=== PATIENT | female | born 1940 ===

== ENCOUNTER 2023-08-15 14:05 | Inpatient (IN) | payer MEDICARE, SELFPAY ==
--- NOTE | ~2023-08-15 | CT_ITS ---
EXAMINATION: CT ABDOMEN AND PELVIS WITH CONTRAST CLINICAL INFORMATION: Right upper quadrant COMPARISON: None available. TECHNIQUE: Multidetector volumetric images were obtained from the superior aspect of the liver through the pubic symphysis following administration 85 mL of Omnipaque 350 intravenous contrast. Sagittal and coronal reformatted images were obtained on the technologist's workstation. Oral contrast: No This CT examination was performed using dose optimization techniques as appropriate, variously including the following: *Automated exposure control *Adjustment of mA and/or kV according to patient size (this includes techniques or standardized protocols for targeted exams where dose is matched to indication/reason for exam; i.e. extremities or head) *Use of iterative reconstruction technique DLP: 485 mGy-cm FINDINGS: LUNG BASES: Bibasilar atelectasis is present. Heart size normal. No pleural effusions or consolidations. There is peribronchial thickening. LIVER, GALLBLADDER, AND BILIARY TREE: The liver is normal in size, shape, and attenuation. No focal hepatic lesion or biliary ductal dilatation is present. The gallbladder is very distended and contains multiple calcified stones. Pericholecystic inflammatory changes are seen consistent with acute cholecystitis no pericholecystic abscess is seen. No air is seen in the biliary tree. PANCREAS: Unremarkable. SPLEEN: Unremarkable. ADRENAL GLANDS: Unremarkable. KIDNEYS AND URETERS: The kidneys are normal in size, shape, and attenuation. No hydronephrosis, hydroureter, or calculi seen. No perinephric stranding. No solid renal masses are seen. BLADDER: Unremarkable. GASTROINTESTINAL TRACT: Some of the inflammatory change from the gallbladder extends to the right colon colonic diverticula are seen most prominent in the sigmoid without evidence of diverticulitis. The small and large bowel are otherwise unremarkable. The appendix is is not identified but there is no evidence of appendicitis. ABDOMINAL WALL: No significant hernia is appreciated. LYMPH NODES: No retroperitoneal lymphadenopathy VASCULAR: Calcific atherosclerotic changes are present in the aorta and iliac vessels. There is no evidence of an abdominal aortic aneurysm. PELVIC VISCERA: An anteverted uterus is present. The endometrium is abnormal with increased enhancement and cystic changes. An abnormal adnexal mass is not seen. No free fluid is detected OSSEOUS STRUCTURES: Degenerative changes are present throughout the spine with mild biconvex thoracolumbar scoliosis. No bony destructive lesions are seen. CT/CT abdomen pelvis w IV con IMPRESSION: 1. Cholelithiasis with acute cholecystitis. 2. Abnormal endometrium. Elective ultrasound is recommended for further evaluation. 3. Colonic diverticulosis without diverticulitis. 4. Other incidental findings as described above. Fleischner guidelines were followed.
[2023-08-15 14:11] VITALS: BP 109/49; PULSE 101; RESP 16; TEMP 36.2; O2SAT 94; BMI 24.1
--- NOTE | 2023-08-15 14:25 | ED.ABDPAIN ---
HPI - Abdominal Pain General Chief Complaint: Abdominal Pain Stated Complaint: Pain when breathing/Abd pain Time Seen by Provider: 08/15/23 19:50 Source: patient and family Mode of arrival: ambulatory Limitations: no limitations History of Present Illness HPI narrative: Patient comes to the emergency room complaining of right upper quadrant/right flank pain for 4 days. Patient has been having multiple episodes of vomiting and diarrhea. No fever chills. Patient states that the pain is constant and nonradiating. Related Data Allergies Allergy/AdvReac Type Severity Reaction Status Date / Time No Known Allergies Allergy Verified 08/15/23 14:11 Review of Systems Review of Systems Constitutional : No Weight loss, No Fever, No Chills, No Night Sweats, No Fatigue, No Malaise ENT/Mouth : No Hearing loss, No Ear Pain, No Nasal Congestion, No Sinus Pain, No Hoarseness, No sore throat, No Rhinorrhea, No Swallowing Difficulty Eyes: No Eye Pain, No Swelling, No Redness, No Foreign Body, No Discharge, No Vision Changes Cardiovascular : No Chest Pain, No SOB, No Dyspnea on Exertion, No Orthopnea, No Edema, No Palpitations Respiratory : No Cough, No Sputum, No Wheezing, No Smoke Exposure, No Dyspnea Gastrointestinal : Opening of nausea and vomiting, complaining of diarrhea, denies constipation, complaining of right upper quadrant/right flank pain continuously, decreased appetite Genitourinary : no irregular bleeding, No Dysuria, No Urinary Frequency, No Hematuria, No Urinary Incontinence, No Urgency, No Flank Pain, No Urinary Flow Changes, No Hesitancy Musculoskeletal : No joint pain, No Myalgias, No Joint Swelling Skin : No Skin Lesions, No rash Neuro : No Weakness, No Numbness, No Paresthesias, No Loss of Consciousness, No Dizziness, No Headache Psych : No Anxiety/Panic, No Depression, No SI/HI/AH/VH, No Social Issues, Heme/Lymph: No Bruising, No Bleeding,No Lymphadenopathy Endocrine : No Polyuria, No Polydipsia, No Temperature Intolerance PMFSH Past Medical History Onset Date is defined in the Problem List Problems that require an onset date and time if occurred within 24 hrs of arrival to the ED Aortic Dissection and Rupture; Neurologic impairment; Cardiopulmonary Arrest; Endotracheal Intubation; Insertion or Replacement of Mechanical Circulatory Assist Device Medical History (Updated 01/02/24 @ 21:33 by Haydee Eason MD) Hypertension Type 2 diabetes mellitus Surgical History (Updated 08/15/23 @ 20:10 by Haydee Eason MD) H/O: section Physical Exam ED Vital Signs: Vital Signs - 24 hr 08/15/23 14:11 08/15/23 21:04 Temperature 97.2 F 98.8 F Pulse Rate 101 H 83 Respiratory Rate 16 18 Blood Pressure 109/49 L 107/49 L Pulse Oximetry 94 94 Oxygen Delivery Method Room Air Room Air BMI result Body Mass Index 24.1 Const Other: Appearance: Alert. Oriented X3. Looks uncomfortable, seems weak Eyes: Pupils equal, round and reactive to light. ENT: Pharynx normal. Neck: Normal inspection. Neck supple. No lymph nodes noted. No crepitus CVS: Normal heart rate and rhythm. Pulses normal. Normal S1 and S2 Respiratory: No respiratory distress. Breath sounds normal. No Wheezing. No rales Abdomen: Soft, mild discomfort to palpation in epigastric area, comes to be more tender or in the lower rib area was/right following, negative Sears sign Skin: Skin warm and dry. Normal skin color. Normal skin turgor. Extremities: No lower extremity edema. No Lacerations. No Rash Neuro: Oriented X 3. No motor deficit. No sensory deficit. Moving all extremities. No slurred speech. CN 2 through 12 grossly intact Psych: calm, cooperative, normal affect Course Course Course Narrative: This is an RME: Additional HPI, ROS, PE not included below will be deferred to primary provider. This 83-year-old female, w history of diabetes, presenting to the emergency department with complaints of right-sided abdominal pain. She is also having liquid diarrhea. No bloody or black stool. Also endorsing weakness. No chest pain or shortness of breath. Plan: labs, UA Medical Decision Making Medical Decision Making MDM Narrative: -my interpretation of labs: White blood cell count 26.5. Chemistry shows mild hyponatremia, total and direct bilirubin slightly elevated, alk-phos also slightly elevated. Lipase negative -patient receiving IV fluids, Zofran, morphine -patient's CT scan of the abdomen and pelvis are pending. -my interpretation of CT scan of the abdomen: The gallbladder is significantly distended with gallstones present. Findings consistent with acute cholecystitis -I discussed the patient labs and imaging with Dr. Britton from surgery, patient being admitted. Dr. Britton at bedside -also, a medicine consult has been requested for surgery risk assessment, is discussed with Dr. Winter Differential Diagnosis Differential Diagnoses: The differential diagnosis associated with the presentation includes (Acute cholecystitis, choledocholithiasis, pancreatitis) Admission/Observation Consideration of admission/observation: Escalation of care including admission/observation considered Consult Healthcare Provider Management of the patient was discussed with: Hospitalist and Accounting Support Specialist Lab Data MDM Lab Attestation statement: I reviewed the patient's lab results. 08/15/23 15:02 08/15/23 15:02 Labs: Lab Results 08/15/23 08/15/23 Range/Units 15:02 21:04 WBC 26.5 H (4.8-10.8) X10*3/uL RBC 5.17 (4.20-5.50) X10*6/uL Hgb 15.9 (12.0-16.0) g/dl Hct 46.7 (37.0-47.0) % MCV 90.3 (80.0-98.0) fL MCH 30.8 (27.0-33.0) pg MCHC 34.0 (31.0-35.0) g/dl RDW 13.4 (11.0-16.0) % Plt Count 168 (160-400) X10*3/uL MPV 11.4 (9.4-12.3) fL Immature Gran % (Auto) 0.7 H (0.0-0.4) % Neut % (Auto) 90.2 H (45-73) % Lymph % (Auto) 4.3 L (20-40) % [place] % (Auto) 4.6 (2-11) % Eos % (Auto) 0.0 (0-4) % Baso % (Auto) 0.2 (0-2) % Lymph # (Auto) 1.2 (1.2-4.9) X10*3/uL [place] # (Auto) 1.2 (0.1-1.2) X10*3/uL Eos # (Auto) 0.0 (0.0-0.4) X10*3/uL Baso # (Auto) 0.1 (0.0-0.2) X10*3/uL Abs Immat Gran (auto) 0.18 H (0.00-0.03) X10*3/uL Absolute Neuts (auto) 23.9 H (2.0-8.3) x10*3/uL Absolute Nucleated RBC 0.000 (0.0-0.012) X10*3/uL Nucleated RBC % (auto) 0.0 (0.0-0.2) /100WBC Smear Tech's Comments VERIFIED Sodium 132 L (135-145) mmol/L Potassium 3.3 (3.3-5.1) mmol/L Chloride 98 (96-108) mmol/L Carbon Dioxide 23 (22-29) mmol/L Anion Gap 14 (12-20) BUN 38 H (9-16) mg/dL Creatinine 1.20 (0.5-1.4) mg/dL Estim Creat Clear Calc 26.9 Estimated GFR 43 Random Glucose 161 H (60-115) mg/dL Lactic Acid 1.0 (0.5-2.0) mmol/L Calcium 9.4 (8.4-10.2) mg/dL Total Bilirubin 1.5 H (0.0-1.0) mg/dL Direct Bilirubin 0.7 H (0.0-0.5) mg/dL AST 18 (5-31) U/L ALT 11 (0-31) U/L Alkaline Phosphatase 118 H (39-117) U/L Total Protein 8.1 H (6.5-8.0) g/dL Albumin 3.8 (3.5-5.0) g/dL Lipase 15 (8-78) U/L COVID-19 (ESTELLE) Negative (Negative) COVID-19 Clin Com See Note Influenza Type A (RUBÉN) Negative (Negative) Influenza Type B (RUBÉN) Negative (Negative) Influenza A & B Note See Note Independent Interpretation I performed an independent interpretation of an: CT Scan Radiology Impression Discussion of test interpretation with radiology: I have reviewed the radiologist's reading. Radiologist Impression: FINDINGS: LUNG BASES: Bibasilar atelectasis is present. Heart size normal. No pleural effusions or consolidations. There is peribronchial thickening. LIVER, GALLBLADDER, AND BILIARY TREE: The liver is normal in size, shape, and attenuation. No focal hepatic lesion or biliary ductal dilatation is present. The gallbladder is very distended and contains multiple calcified stones. Pericholecystic inflammatory changes are seen consistent with acute cholecystitis no pericholecystic abscess is seen. No air is seen in the biliary tree. PANCREAS: Unremarkable. SPLEEN: Unremarkable. ADRENAL GLANDS: Unremarkable. KIDNEYS AND URETERS: The kidneys are normal in size, shape, and attenuation. No hydronephrosis, hydroureter, or calculi seen. No perinephric stranding. No solid renal masses are seen. BLADDER: Unremarkable. GASTROINTESTINAL TRACT: Some of the inflammatory change from the gallbladder extends to the right colon colonic diverticula are seen most prominent in the sigmoid without evidence of diverticulitis. The small and large bowel are otherwise unremarkable. The appendix is is not identified but there is no evidence of appendicitis. ABDOMINAL WALL: No significant hernia is appreciated. LYMPH NODES: No retroperitoneal lymphadenopathy VASCULAR: Calcific atherosclerotic changes are present in the aorta and iliac vessels. There is no evidence of an abdominal aortic aneurysm. PELVIC VISCERA: An anteverted uterus is present. The endometrium is abnormal with increased enhancement and cystic changes. An abnormal adnexal mass is not seen. No free fluid is detected OSSEOUS STRUCTURES: Degenerative changes are present throughout the spine with mild biconvex thoracolumbar scoliosis. No bony destructive lesions are seen. CT/CT abdomen pelvis w IV con IMPRESSION: 1. Cholelithiasis with acute cholecystitis. 2. Abnormal endometrium. Elective ultrasound is recommended for further evaluation. 3. Colonic diverticulosis without diverticulitis. 4. Other incidental findings as described above. Independent Historian Clinical information obtained from an independent historian. History obtained from or confirmed by: Other (Patient's daughter and granddaughter) Medications Administered Discontinued Medications Generic Name Dose Route Start Last Admin Trade Name Freq PRN Reason Stop Dose Admin Sodium Chloride 1,000 mls @ 999 mls/hr 08/15/23 19:59 08/15/23 20:23 Ns IVCONT 08/15/23 20:59 999 mls/hr .Q1H1M ONE Administration Piperacillin Sod/Tazobactam 50 mls @ 100 mls/hr 08/15/23 20:35 08/15/23 21:12 Sod 3.375 gm/ Sodium Chloride IV 08/15/23 21:04 100 mls/hr ONCE ONE Administration Iohexol 100 ml 08/15/23 20:22 08/15/23 20:22 Iohexol 350 Mg/Ml 100 Ml Infus..Btl IV 08/15/23 20:23 85 ml ONCE ONE Administration Morphine Sulfate 2 mg 08/15/23 19:59 08/15/23 20:23 Morphine Sulfate 2 Mg/Ml Cartridge IVPUSH 08/15/23 20:00 2 mg ONCE ONE Administration Protocol Ondansetron HCl 4 mg 08/15/23 19:59 08/15/23 20:23 Ondansetron Hcl 4 Mg/2 Ml Vial IVPUSH 08/15/23 20:00 4 mg ONCE ONE Administration Critical Care Time Critical Care Time Critical Care Time: Yes Total Critical Care Time: 75 Attestation: I have personally provided critical care time. Time includes review of lab data, radiology results, discussion with consultants, and monitoring for potential decompensation. Intervention performed as documented. Discharge Plan Discharge Clinical Impression: Acute cholecystitis Patient Disposition: Admitted As Inpatient
[2023-08-15 15:12] LABS: Basophils Absolute Auto 0.1 X10*3/uL (0.0-0.2); Basophils Percent Auto 0.2 % (0-2); Hematocrit 46.7 % (37.0-47.0); Hemoglobin 15.9 g/dl (12.0-16.0); Imm Gran Abs Auto 0.18 X10*3/uL (0.00-0.03); Imm Gran Pct Auto 0.7 % (0.0-0.4); Lymphocytes Absolute Auto 1.2 X10*3/uL (1.2-4.9); Lymphocytes Percent Auto 4.3 % (20-40); MANUAL DIFF FLAG SCAN; Mean Corpuscular Hemoglobin 30.8 pg (27.0-33.0); Mean Corpuscular Volume 90.3 fL (80.0-98.0); Mean Platelet Volume 11.4 fL (9.4-12.3); Monocytes Absolute Auto 1.2 X10*3/uL (0.1-1.2); Monocytes Percent Auto 4.6 % (2-11); Neutrophils Absolute Auto 23.9 x10*3/uL (2.0-8.3); Neutrophils Percent Auto 90.2 % (45-73); Platelet Count 168 X10*3/uL (160-400); Red Blood Count 5.17 X10*6/uL (4.20-5.50); Red Cell Distribution Width 13.4 % (11.0-16.0); SCAN SMEAR FLAG 1; White Blood Count 26.5 X10*3/uL (4.8-10.8)
[2023-08-15 15:27] LABS: Alanine Aminotransferase 11 U/L (0-31); Albumin Level 3.8 g/dL (3.5-5.0); Alkaline Phosphatase 118 U/L (39-117); Anion Gap 14 (12-20); Aspartate Amino Transferase 18 U/L (5-31); Bilirubin Direct 0.7 mg/dL (0.0-0.5); Bilirubin Total 1.5 mg/dL (0.0-1.0); Blood Urea Nitrogen 38 mg/dL (9-16); Calcium 9.4 mg/dL (8.4-10.2); Carbon Dioxide 23 mmol/L (22-29); Chloride 98 mmol/L (96-108); Creatinine Clr Calc Pharmacy 26.9; Estimated Glomerular Filt Rate 43; Glucose Random 161 mg/dL (60-115); Lipase 15 U/L (8-78); Potassium 3.3 mmol/L (3.3-5.1); Sodium 132 mmol/L (135-145); Total Protein 8.1 g/dL (6.5-8.0)
[2023-08-15 15:32] LABS: SLIDE REVIEW VERIFIED
[2023-08-15 15:35] LABS: COVID-19 Test Negative (Negative); IDNOW Serial# 08D9AD1C
[2023-08-15 15:38] LABS: IDNOW Serial# 9DB6401D; Influenza A Negative (Negative); Influenza B2 Negative (Negative)
[2023-08-15] MEDS: iohexoL 350 MG/ML 100 ML INFUS..BTL IV (20:22)
[2023-08-15] MEDS: 0.9 % Sodium Chloride 1,000 ML 999 ML IVCONT (20:23)
[2023-08-15] MEDS: ondansetron HCL 4 MG/2 ML VIAL IVPUSH (20:23)
[2023-08-15] MEDS: Morphine Sulfate 2 MG/ML CARTRIDGE IVPUSH (20:23)
[2023-08-15 21:04] VITALS: BP 107/49; PULSE 83; RESP 18; TEMP 37.1; O2SAT 94
[2023-08-15] MEDS: Piperacillin Sodium/Tazobactam 3.375 GM in 0.9 % Sodium Chloride 50 ML IV (21:12)
[2023-08-15 21:28] LABS: Appearance Urine Turbid; Glucose Urine UA 100 mg/dL (Negative); Leukocyte Esterase Urine Moderate (2+) (Negative); Nitrite Urine Positive (Negative); Specific Gravity - Urine >= 1.030 (1.005-1.025); UMIC TRIGGER UACC YES; Urine Blood Trace (Negative); Urine Ketones Trace mg/dL (Negative); Urine Protein 100 (2+) mg/dL (Neg-Trace)
[2023-08-15 21:37] LABS: Color Urine Dark Yellow
[2023-08-15 21:39] LABS: Bacteria Urine 4+ (None Seen); Granular Casts Urine Present; Hyaline Casts Urine >20 /LPF (0-2); Squamous Epithelial Cell Urine >20 /HPF (0-2); UACC Culture Trigger YES
--- NOTE | 2023-08-15 22:02 | P.HPGS_ITS ---
History of Present Illness History of Present Illness Date of Service: 08/15/23 Chief complaint: Pain when breathing/Abd pain Narrative: Tabitha Clifton is a 83 year old female originally from [place] who comes in with her family today after having 4 days worth of not being able to eat and drink having nausea dry heaving. She has been able to take down just a little bit of some liquids and some light food. She lives in [place] but comes up here for the vacation with her family members visiting her daughter who lives in [place]. She speaks Polish understands little bit of anguish. She has had problems with her stomach and digestion before. It does not seem as though she knew that she had gallstones however. She has no sick contacts. Here in the emergency room her white count is elevated 26,000 her LFTs are little elevated and a CT scan shows a remarkably distended and thickened gallbladder with multiple stones consistent with cholecystitis. She complains of pain in the right upper quadrant radiating to her right flank and back area very typical of biliary disease. Disease she has had a and a hernia repair in her lower abdomen. Generally she is really quite healthy walks around moves around very well and is in overall good shape for 83-year-old Review of Systems Review of Systems: Yes all other systems are reviewed and are negative PMF Past Medical History Medical History (Updated 08/15/23 @ 21:33 by Haydee Eason MD) Hypertension Type 2 diabetes mellitus Surgical History Surgical History (Updated 08/15/23 @ 20:10 by Haydee Eason MD) H/O: section Social History Social History Advance Directives: No Advance Directives Information Provided: Yes Meds Allergies Allergy/AdvReac Type Severity Reaction Status Date / Time No Known Allergies Allergy Verified 08/15/23 14:11 Active Medications: Current Medications Acetaminophen (Acetaminophen 325 Mg Tablet) 650 mg PO Q6H PRN PRN Reason: Pain, Mild (Pain Scale 1-3) Famotidine (Famotidine 20 Mg Tablet) 20 mg PO BID DANIEL Heparin Sodium (Porcine) (Heparin Sodium,Porcine 5,000 Unit/Ml Vial) 5,000 unit SUBCUT BID DANIEL Sodium Chloride (Ns) 1,000 mls @ 84 mls/hr IVCONT .[id number] DANIEL Piperacillin Sod/Tazobactam (Sod 3.375 gm/ Sodium Chloride) 50 mls @ 100 mls/hr IV RQ6H DANIEL Sodium Chloride (0.9 % Sodium Chloride Flush 3 Ml Syringe) 3 ml IVFLUSH QSHIFT DANIEL Home Medications Medication Instructions Recorded Confirmed Last Taken Type Probiotic 1 cap PO DAILY 08/15/23 08/15/23 Unknown History atorvastatin 10 mg tablet 10 mg PO BEDTIME 08/15/23 08/15/23 Unknown History levothyroxine 75 mcg tablet 75 mcg PO DAILY 08/15/23 08/15/23 Unknown History metformin 850 mg tablet 850 mg PO DAILY 08/15/23 08/15/23 Unknown History Physical Exam Vital Signs: Vital Signs: Last Vital Signs Temp 98.8 F 08/15/23 21:04 Pulse 83 08/15/23 21:04 Resp 18 08/15/23 21:04 BP 107/49 L 08/15/23 21:04 Pulse Ox 94 08/15/23 21:04 O2 Del Method Room Air 08/15/23 21:04 BMI result Body Mass Index 24.1 Const: General: cooperative, healthy appearing, comfortable and no acute distress Nutritional Appearance: underweight Orientation/consciousness: oriented to person, oriented to place, oriented to time and patient oriented x3 Limitations: no limitations HEENT: Head: Yes normal to inspection Eyes: Other: Nonicteric Resp: Effort & Inspection: normal respiratory effort and able to speak in complete sentences Auscultation: clear to auscultation bilaterally Cardio: Rate: regular rate Rhythm: regular rhythm GI: Other: Abdomen is soft nontender other than in the right upper quadrant where she has tenderness the radiate to her right flank back area mild guarding no rebound no peritoneal signs. Midline lower abdomen incision no hernias noted. No peritonitis Skin: Other: Nonicteric Neuro: General: oriented to person, oriented to place, oriented to time and patient oriented x3 Cranial nerves: Yes CN's II-XII intact bilaterally Extrem: General: Yes normal to inspection and Yes full ROM Results Results Labs: Short CBC 08/15/23 Range/Units 15:02 WBC 26.5 H (4.8-10.8) X10*3/uL Hgb 15.9 (12.0-16.0) g/dl Hct 46.7 (37.0-47.0) % Plt Count 168 (160-400) X10*3/uL BMP 08/15/23 15:02 Sodium 132 L Potassium 3.3 Chloride 98 Carbon Dioxide 23 BUN 38 H Creatinine 1.20 Calcium 9.4 Liver Function 08/15/23 Range/Units 15:02 Total Bilirubin 1.5 H (0.0-1.0) mg/dL Direct Bilirubin 0.7 H (0.0-0.5) mg/dL AST 18 (5-31) U/L ALT 11 (0-31) U/L Alkaline Phosphatase 118 H (39-117) U/L Albumin 3.8 (3.5-5.0) g/dL Urine 08/15/23 Range/Units 21:04 Urine Color Dark Yellow Urine Appearance Turbid Urine pH 5.0 (5.0-9.0) Ur Specific [place] >= 1.030 H (1.005-1.025) Urine Protein 100 (2+) H (Neg-Trace) mg/dL Urine Glucose (UA) 100 H (Negative) mg/dL Abdomen CT scan report/results: report reviewed and image reviewed CT scan - pelvis: report reviewed and image reviewed Assessment and Plan (1) Acute cholecystitis: Status: Acute Plan Patient is an 83-year-old female with acute cholecystitis by imaging tenderness in the right upper quadrant and white blood count being 26,000. Overall though she stable in says that she is feeling better with a little IV hydration over here. We will get the medical team to determine her surgical risk and then determine what options she has. She has extensive stone so I feel that if she is in good shape and we can get her more stabilized with some fluid rehydration antibiotics then she could be a good candidate for laparoscopic cholecystectomy. We will get a hospitalist consultation and if they determined that her risks are high then may consider just decompression with a cholecystostomy tube. I had a long discussion with the patient's brother who is a retired manufacturing mechanic who worked in [facility] but who now lives in [place] and he agrees that she is generally in good shape and health and that she would benefit from an operation the most. We will admit her IV hydration IV antibiotics recheck labs in the morning have the hospitalist team help with determining search it management of her blood and diabetes. The patient and the family understand and agree with this. Quality Stroke Does the patient have a stroke diagnosis?: No VTE Prior VTE?: No VTE Risk Level:: Surgical - moderate VTE Device Contraindication: N/A - Device Ordered VTE Drug Contraindication: N/A - Med Ordered Procedures Date of Service Date of Service: 08/15/23
--- NOTE | 2023-08-15 22:09 | PHA.MEDREC ---
Pharmacy Consult ? Medication Reconciliation Pharmacy has completed the medication reconciliation. Patient's family had list of medicaitons. Annika Singer, RossyD
[2023-08-15 22:16] VITALS: BP 120/54; PULSE 72; RESP 18; TEMP 37; O2SAT 95
[2023-08-15] MEDS: Heparin Sodium,Porcine 5,000 UNIT/ML VIAL 5000 UNIT SUBCUT (22:29)
[2023-08-15] MEDS: Famotidine 20 MG TABLET PO (22:29)
[2023-08-15] MEDS: 0.9 % Sodium Chloride 1,000 ML 84 ML IVCONT (22:30)
[2023-08-15 23:37] VITALS: BP 126/58; PULSE 78; RESP 20; TEMP 37.2; O2SAT 97
--- NOTE | 2023-08-15 23:42 | MHC.EDTECH ---
Patient 0000 vitals taken ,pt was reposition and boosted up in bed ,family member at bed side .
[2023-08-16] VITALS (13 sets, daily range): BP systolic 107–149; BP diastolic 45–67; PULSE 67–98; RESP 16–20; TEMP 36–37.4; O2SAT 92–98; BMI 24.1
--- NOTE | 2023-08-16 01:27 | PC.NURSE ---
pt had episode of diarrhea. pt states she has been having diarrhea for very long time . granddtr confirms that is has been more than several days at home.
[2023-08-16] MEDS: Piperacillin Sodium/Tazobactam 3.375 GM in 0.9 % Sodium Chloride 50 ML IV ×4 (04:16→20:16)
[2023-08-16] MEDS: Morphine Sulfate 4 MG/ML CARTRIDGE 3 MG IVPUSH (08:14)
--- NOTE | 2023-08-16 08:44 | P.PNGS_ITS ---
Subjective Subjective Date of Service: 08/16/23 <Mouna Harrington PA-C - Last Filed: 08/16/23 08:45> 08/16/23 <Umberto Rendon MD - Last Filed: 08/16/23 12:04> Interval history: Continues to c/o RUQ abd pain, somewhat relieved with analgesics. < Mouna Harrington PA-C - Last Filed: 08/16/23 08:45> Physical Exam 2 Vital Signs: Vital Signs: Last Vital Signs Temp 98.1 F 08/16/23 08:00 Pulse 98 08/16/23 08:00 Resp 19 08/16/23 08:14 BP 145/66 H 08/16/23 08:00 Pulse Ox 96 08/16/23 08:00 O2 Del Method Room Air 08/16/23 08:00 BMI result Body Mass Index 24.1 <MONROE Ramires Last Filed: 08/16/23 08:45> Const: General: comfortable, no acute distress and alert <MONROE Ramires Last Filed: 08/16/23 08:45> Orientation/consciousness: patient oriented x3 <MONROE Ramires Last Filed: 08/16/23 08:45> Resp: Effort & Inspection: normal respiratory effort <MONROE Ramires Last Filed: 08/16/23 08:45> GI: Inspection: No distended and Yes scar <MONROE Ramires Last Filed: 08/16/23 08:45> Palpation (GI): Soft to palpation, Tenderness to palpation present (GI) in the RUQ, no guarding and not rigid <MONROE Ramires Last Filed: 08/16/23 08:45> Skin: General skin exam: no rashes or lesions noted and no jaundice < MONROE Ramires Last Filed: 08/16/23 08:45> Neuro: General: patient oriented x3 <MONROE Ramires Last Filed: 08/16/23 08:45> Objective Data Active Medications Acetaminophen (Acetaminophen 325 Mg Tablet) 650 mg PO Q6H PRN PRN Reason: Pain, Mild (Pain Scale 1-3) Famotidine (Famotidine 20 Mg Tablet) 20 mg PO BID [facility] Last Admin: 08/16/23 07:51 Dose: Not Given Documented By: COTEMA Non-Admin Reason: NPO Heparin Sodium (Porcine) (Heparin Sodium,Porcine 5,000 Unit/Ml Vial) 5,000 unit SUBCUT BID [facility] Last Admin: 08/16/23 07:25 Dose: Not Given Documented By: COTEMA Non-Admin Reason: preop Sodium Chloride (Ns) 1,000 mls @ 84 mls/hr IVCONT .[id number] [facility] Last Admin: 08/15/23 22:30 Dose: 84 mls/hr Documented By: ELIZABETH Piperacillin Sod/Tazobactam (Sod 3.375 gm/ Sodium Chloride) 50 mls @ 100 mls/hr IV Q6H [facility] Last Admin: 08/16/23 08:19 Dose: 100 mls/hr Documented By: MAGEDEMA Morphine Sulfate (Morphine Sulfate 4 Mg/Ml Cartridge) 3 mg IVPUSH Q3H PRN; Protocol PRN Reason: Pain, Severe (Pain Scale 7-10) Last Admin: 08/16/23 08:14 Dose: 3 mg Documented By: MAGEDEMA Sodium Chloride (0.9 % Sodium Chloride Flush 3 Ml Syringe) 3 ml IVFLUSH QSHIFT [facility] Last Admin: 08/16/23 07:22 Dose: Not Given Documented By: SHERWIN Non-Admin Reason: IV Running <Mouna Harrington PA-C - Last Filed: 08/16/23 08:45> Labs CBC & Chem 7: 08/16/23 09:28 08/16/23 09:28 <Mouna Harrington PA-C - Last Filed: 08/16/23 08:45> Labs: Laboratory Results - last 24 hr 08/15/23 08/15/23 15:02 21:04 MCV 90.3 MCH 30.8 MCHC 34.0 RDW 13.4 Plt Count 168 MPV 11.4 Immature Gran % (Auto) 0.7 H Neut % (Auto) 90.2 H Lymph % (Auto) 4.3 L [place] % (Auto) 4.6 Eos % (Auto) 0.0 Baso % (Auto) 0.2 Lymph # (Auto) 1.2 [place] # (Auto) 1.2 Eos # (Auto) 0.0 Baso # (Auto) 0.1 Abs Immat Gran (auto) 0.18 H Absolute Neuts (auto) 23.9 H Absolute Nucleated RBC 0.000 Nucleated RBC % (auto) 0.0 Smear Tech's Comments VERIFIED Anion Gap 14 Estim Creat Clear Calc 26.9 Estimated GFR 43 Random Glucose 161 H Lactic Acid 1.0 Calcium 9.4 Total Bilirubin 1.5 H Direct Bilirubin 0.7 H AST 18 ALT 11 Alkaline Phosphatase 118 H Total Protein 8.1 H Albumin 3.8 Lipase 15 Urine Color Dark Yellow Urine Appearance Turbid Urine pH 5.0 Ur Specific [place] >= 1.030 H Urine Protein 100 (2+) H Urine Glucose (UA) 100 H Urine Ketones Trace Urine Blood Trace H Urine Nitrite Positive H Ur Leukocyte Esterase Moderate (2+) H Urine RBC 6-10 H Urine WBC 11-20 Ur Squamous Epith Cells >20 Urine Bacteria 4+ Hyaline Casts >20 Granular Casts Present COVID-19 (ESTELLE) Negative COVID-19 Clin Com See Note Influenza Type A (RUBÉN) Negative Influenza Type B (RUBÉN) Negative Influenza A & B Note See Note <Mouna Harrington PA-C - Last Filed: 08/16/23 08:45> Procedures Date of Service Date of Service: 08/16/23 <Mouna Harrington PA-C - Last Filed: 08/16/23 08:45> 08/16/23 <Umberto Rendon MD - Last Filed: 08/16/23 12:04> Progress Note: A&P Assessment and plan (1) Acute cholecystitis: Status: Acute <Mouna Harrington PA-C - Last Filed: 08/16/23 08:45> Assessment and Plan: 83 year old female admitted with acute cholecystitis, awaiting lap jeny today. Risks, benefits, alternatives of laparoscopic possible open cholecystectomy were reviewed with the patient including but not limited to bleeding, infection, numbness, pain, poor healing, injury to the liver, bowel or bile ducts, leak, retained stones and the patient wishes to proceed.? Arrangements will be made for this.?All questions were answered. <Mouna Harrington PA-C - Last Filed: 08/16/23 08:45> Time Spent With Patient Time: Total time managing care of this patient today ____ minutes. <Mouna Harrington PA-C - Last Filed: 08/16/23 08:45> Quality Stroke Does the patient have a stroke diagnosis?: No <Mouna Harrington PA-C - Last Filed: 08/16/23 08:45> VTE Prior VTE?: No <Mouna Harrington PA-C - Last Filed: 08/16/23 08:45> VTE Risk Level:: Surgical - moderate <Mouna Harrington PA-C - Last Filed: 08/16/23 08:45> VTE Device Contraindication: N/A - Device Ordered <Mouna Harrington PA-C - Last Filed: 08/16/23 08:45> VTE Drug Contraindication: N/A - Med Ordered <MONROE Ramires Last Filed: 08/16/23 08:45>
--- NOTE | 2023-08-16 08:53 | P.CONHOSP_ITS ---
History of Present Illness Data of Consult Service Date: 08/16/23 Requesting physician: Saskia Britton Primary Care Provider: Unknown Physician HPI Reason for consult: Pre-op evaluation Tabitha Clifton is 83 y/o Colombian-speaking woman (originally from [place]) with past medical history significant for hyperlipidemia, well-controlled type 2 diabetes on metformin and hypothyroidism who was admitted to the surgical service of tissue was found to have acute cholecystitis. She stated that last Monday she started to experience right upper quadrant pain associated with multiple events of nonbloody vomiting and chills. She also mentioned that over the last few months she has been experiencing number a watery nonbloody diarrhea and appetite. Pain does not relives with defecation. She denied fever at home. She recently traveled to [place]. She denied weight loss, headache, dizziness, chest pain, or shortness of breath. She denies any acute genitourinary symptoms. abdominal surgery history is remarkable for C-sections x1 an umbilical hernia repair. She denied a history of coronary artery disease/ myocardial infarction, congestive heart failure, stroke or renal disease. She denied topical smoking or alcohol abuse. On admission, She was found have stable vital signs and no fever reported. Blood workup is significant can leukocytosis, 26.5, ALT and AST are normal. ALK Phos elevated. Total bilirubin is slightly elevated at 1.5 (direct is elevated, 0.7). Lipase is normal. Urinalysis shows finding consistent with UTI. She has been receiving IV hydration and empiric IV antibiotic therapy with Zosyn. Abdomen and pelvis CT scan showed findings consistent with cholelithiasis and acute cholecystitis.She has been scheduled to have laparoscopic cholecystectomy today. Her pain is well-controlled this morning. *HPI addressed in [place] ([facility] Review of Systems 2 Review of Systems: All 12 systems were reviewed and normal except as noted in HPI. [facility] Medical History (Updated 08/16/23 @ 10:34 by Diana Gonzalez MD) Hyperlipidemia Hypothyroidism Hypertension Type 2 diabetes mellitus Functional capacity: independent ambulation Surgical History (Updated 08/16/23 @ 10:35 by Diana Gonzalez MD) H/O hernia repair H/O: section Social History Household Members: Family Housing: House Patient Tobacco Use Status: Never used Tobacco Second Hand Smoke Exposure: No Meds Allergies Allergy/AdvReac Type Severity Reaction Status Date / Time No Known Allergies Allergy Verified 08/15/23 14:11 Active Medications: Current Medications Acetaminophen (Acetaminophen 325 Mg Tablet) 650 mg PO Q6H PRN PRN Reason: Pain, Mild (Pain Scale 1-3) Famotidine (Famotidine 20 Mg Tablet) 20 mg PO BID [facility] Last Admin: 08/16/23 07:51 Dose: Not Given Heparin Sodium (Porcine) (Heparin Sodium,Porcine 5,000 Unit/Ml Vial) 5,000 unit SUBCUT BID [facility] Last Admin: 08/16/23 07:25 Dose: Not Given Sodium Chloride (Ns) 1,000 mls @ 84 mls/hr IVCONT .[id number] [facility] Last Admin: 08/16/23 08:51 Dose: Not Given Piperacillin Sod/Tazobactam (Sod 3.375 gm/ Sodium Chloride) 50 mls @ 100 mls/hr IV Q6H [facility] Last Infusion: 08/16/23 08:50 Dose: Infused Morphine Sulfate (Morphine Sulfate 4 Mg/Ml Cartridge) 3 mg IVPUSH Q3H PRN; Protocol PRN Reason: Pain, Severe (Pain Scale 7-10) Last Admin: 08/16/23 08:14 Dose: 3 mg Sodium Chloride (0.9 % Sodium Chloride Flush 3 Ml Syringe) 3 ml IVFLUSH QSHIFT [facility] Last Admin: 08/16/23 07:22 Dose: Not Given Home Medications Medication Instructions Recorded Confirmed Last Taken Type Probiotic 1 cap PO DAILY 08/15/23 08/15/23 Unknown History atorvastatin 10 mg tablet 10 mg PO BEDTIME 08/15/23 08/15/23 Unknown History levothyroxine 75 mcg tablet 75 mcg PO DAILY 08/15/23 08/15/23 Unknown History metformin 850 mg tablet 850 mg PO DAILY 08/15/23 08/15/23 Unknown History Physical Exam 2 Vital Signs and Narrative: Vital Signs: Last Vital Signs Temp 98.1 F 08/16/23 08:00 Pulse 98 08/16/23 08:00 Resp 19 08/16/23 08:14 BP 145/66 H 08/16/23 08:00 Pulse Ox 96 08/16/23 08:00 O2 Del Method Room Air 08/16/23 08:00 BMI result Body Mass Index 24.1 Const: Other: Constitutional - Awake and Alert, No apparent distress Eyes - PERRLA, EOMI Cardiovascular - S1S2, RRR, No edema Respiratory - Normal lung expansion, Normal respiratory effort, No respiratory distress, CTA bilaterally Gastrointestinal - soft, no distended, normal bowel sounds, RUQ tenderness without rebound or guarding. - No CVA tenderness Extremities - no calf tenderness bilaterally, no swelling Musculoskeletal - Normal inspection, normal ROM Skin - Warm/Dry Neurological - Alert & oriented x3. No focal deficit grossly noted. Psychological - Appropriate affect Results Labs 08/15/23 15:02 08/15/23 15:02 Labs: Laboratory Results - last 24 hr 08/15/23 08/15/23 15:02 21:04 MCV 90.3 MCH 30.8 MCHC 34.0 RDW 13.4 Plt Count 168 MPV 11.4 Immature Gran % (Auto) 0.7 H Neut % (Auto) 90.2 H Lymph % (Auto) 4.3 L [place] % (Auto) 4.6 Eos % (Auto) 0.0 Baso % (Auto) 0.2 Lymph # (Auto) 1.2 [place] # (Auto) 1.2 Eos # (Auto) 0.0 Baso # (Auto) 0.1 Abs Immat Gran (auto) 0.18 H Absolute Neuts (auto) 23.9 H Absolute Nucleated RBC 0.000 Nucleated RBC % (auto) 0.0 Smear Tech's Comments VERIFIED Anion Gap 14 Estim Creat Clear Calc 26.9 Estimated GFR 43 Random Glucose 161 H Lactic Acid 1.0 Calcium 9.4 Total Bilirubin 1.5 H Direct Bilirubin 0.7 H AST 18 ALT 11 Alkaline Phosphatase 118 H Total Protein 8.1 H Albumin 3.8 Lipase 15 Urine Color Dark Yellow Urine Appearance Turbid Urine pH 5.0 Ur Specific [place] >= 1.030 H Urine Protein 100 (2+) H Urine Glucose (UA) 100 H Urine Ketones Trace Urine Blood Trace H Urine Nitrite Positive H Ur Leukocyte Esterase Moderate (2+) H Urine RBC 6-10 H Urine WBC 11-20 Ur Squamous Epith Cells >20 Urine Bacteria 4+ Hyaline Casts >20 Granular Casts Present COVID-19 (ESTELLE) Negative COVID-19 Clin Com See Note Influenza Type A (RUBÉN) Negative Influenza Type B (RUBÉN) Negative Influenza A & B Note See Note Imaging Radiologist's Impressions: Impressions Abdomen/Pelvis CT 08/15/23 20:23 IMPRESSION: 1. Cholelithiasis with acute cholecystitis. 2. Abnormal endometrium. Elective ultrasound is recommended for further evaluation. 3. Colonic diverticulosis without diverticulitis. 4. Other incidental findings as described above. Fleischner guidelines were followed. Assessment and Plan (1) Hyperlipidemia: Qualifiers: Hyperlipidemia type: unspecified Qualified Code(s): E78.5 - Hyperlipidemia, unspecified Status: Acute (2) Hypothyroidism: Qualifiers: Hypothyroidism type: unspecified Qualified Code(s): E03.9 - Hypothyroidism, unspecified Status: Acute (3) Acute cholecystitis: Status: Acute Plan Tabitha Clifton is 83 y/o [place]ian-speaking woman admitted with: 1. Acute cholecystitis and acute cholecystitis. Continue NPO, IV hydration, IV antibiotic therapy and pain controlled. RCRI class II risk. Please check EKG if no significant changes please prooceed with planned procedure. Continue to monitor LFTs. 2. Leukocytosis likely secondary to above, doubt sepsis. Blood cultures obtained, will follow resutls. Continue to monitor WBC. Continue empiric IV antibiotic therapy with Zosyn and IV fluids. 3. Urinary tract infection. Continue IV antibiotic therapy with Zosyn. Urine culture was obtained, will follow results. 4. Hypothyroidism. Continue levothyroxine when able. 5. Hyperlipidemia. Continue atorvastatin when able. 6. Type 2 diabetes mellitus. Hold metformin. Blood glucose monitoring closely. Insulin sliding scale for now. 7. History of vitamin B12 deficiency. Receiving B12 injections as outpatient. 8. Chronic diarrhea. If persists after surgery, please consider stool studies and/or GI referral as an outpatient for further evaluation. 9. Abnormal endometrium. Pelvic US as an outpatient. VTE prophylaxis: Heparin.
[2023-08-16 10:08] LABS: Basophils Absolute Auto 0.1 X10*3/uL (0.0-0.2); Basophils Percent Auto 0.3 % (0-2); Eosinophils Absolute Auto 0.2 X10*3/uL (0.0-0.4); Eosinophils Percent Auto 0.9 % (0-4); Hematocrit 38.6 % (37.0-47.0); Hemoglobin 12.9 g/dl (12.0-16.0); Imm Gran Pct Auto 0.6 % (0.0-0.4); Lymphocytes Absolute Auto 0.3 X10*3/uL (1.2-4.9); Lymphocytes Percent Auto 1.8 % (20-40); MANUAL DIFF FLAG SCAN; Mean Corpuscular HGB Conc 33.4 g/dl (31.0-35.0); Mean Corpuscular Hemoglobin 30.6 pg (27.0-33.0); Mean Corpuscular Volume 91.5 fL (80.0-98.0); Mean Platelet Volume 11.8 fL (9.4-12.3); Monocytes Absolute Auto 0.5 X10*3/uL (0.1-1.2); Monocytes Percent Auto 2.9 % (2-11); Neutrophils Absolute Auto 15.1 x10*3/uL (2.0-8.3); Neutrophils Percent Auto 93.5 % (45-73); Platelet Count 145 X10*3/uL (160-400); Red Blood Count 4.22 X10*6/uL (4.20-5.50); Red Cell Distribution Width 13.2 % (11.0-16.0); SCAN SMEAR FLAG 1; White Blood Count 16.1 X10*3/uL (4.8-10.8)
[2023-08-16 10:24] LABS: Alanine Aminotransferase 19 U/L (0-31); Albumin Level 2.8 g/dL (3.5-5.0); Alkaline Phosphatase 118 U/L (39-117); Anion Gap 13 (12-20); Aspartate Amino Transferase 35 U/L (5-31); Bilirubin Total 1.3 mg/dL (0.0-1.0); Blood Urea Nitrogen 25 mg/dL (9-16); Calcium 8.1 mg/dL (8.4-10.2); Carbon Dioxide 21 mmol/L (22-29); Chloride 105 mmol/L (96-108); Creatinine Clr Calc Pharmacy 44.2; Estimated Glomerular Filt Rate > 60; Glucose Random 108 mg/dL (60-115); Potassium 2.8 mmol/L (3.3-5.1); Sodium 136 mmol/L (135-145); Total Protein 6.2 g/dL (6.5-8.0)
[2023-08-16 10:26] LABS: SLIDE REVIEW VERIFIED
--- NOTE | 2023-08-16 11:13 | MHC.CM.PN ---
Addendum entered by Amy George RN 08/16/23 13:31: CM attempted to meet with patient again. Still in OR. Original Note: CM attempted to meet with patient. However patient is off unit. Will attempt again today.
--- NOTE | 2023-08-16 11:58 | HO.ANESPROP2 ---
[facility] Active Problems Active Problems: All Active Problems (Updated 08/16/23 @ 10:34 by Diana Gonzalez MD) Hyperlipidemia (Acute) Hypothyroidism (Acute) Acute cholecystitis (Acute) Past Medical History Medical History Hyperlipidemia Hypothyroidism Hypertension Type 2 diabetes mellitus Functional capacity: independent ambulation Patient : No Family History Family history of problems with anesthesia: No Surgical History Surgical History (Updated 08/16/23 @ 10:35 by Diana Gonzalez MD) H/O hernia repair H/O: section History of Problems with Anesthesia: No Social History Social History Household Members: Family Housing: House Patient Tobacco Use Status: Never used Tobacco Second Hand Smoke Exposure: No Use of substances other than those prescribed or required for medical reasons: No Currently Displaying Signs/Symptoms of Drug Intoxication Withdrawal: No Have you been hit, kicked, punched, or otherwise hurt by someone within the past year? If so, by whom?: No Do you feel safe in your current relationship?: Yes Is there a partner from a previous relationship who is making you feel unsafe now?: No Are you made to feel afraid or neglected: No Are you DNR?: No Advance Directives: No Advance Directives Information Provided: Yes Advance Directives on File: No Do you have thoughts of harming others: None Do you have a plan to hurt others: No Plan Recently lost weight without trying: No Eating poorly because of decreased appetite: No Nutrition Risks: Acute nausea or vomiting x1 week Patient : No : No Poor oral hygiene: No Meds Allergies Allergy/AdvReac Type Severity Reaction Status Date / Time No Known Allergies Allergy Verified 08/15/23 14:11 Active Medications: Current Medications Acetaminophen (Acetaminophen 325 Mg Tablet) 650 mg PO Q6H PRN PRN Reason: Pain, Mild (Pain Scale 1-3) Atorvastatin Calcium (Atorvastatin Calcium 10 Mg Tablet) 10 mg PO BEDTIME DANIEL Famotidine (Famotidine 20 Mg Tablet) 20 mg PO BID [facility] Last Admin: 08/16/23 07:51 Dose: Not Given Fentanyl (Fentanyl Citrate/Pf 100 Mcg/2 Ml Vial) 25 mcg IVPUSH Q5M PRN; Protocol PRN Reason: Pain, Moderate(Pain Scale 4-6) Heparin Sodium (Porcine) (Heparin Sodium,Porcine 5,000 Unit/Ml Vial) 5,000 unit SUBCUT BID [facility] Last Admin: 08/16/23 07:25 Dose: Not Given Sodium Chloride (Ns) 1,000 mls @ 84 mls/hr IVCONT .[id number] [facility] Last Infusion: 08/16/23 10:18 Dose: Infused Piperacillin Sod/Tazobactam (Sod 3.375 gm/ Sodium Chloride) 50 mls @ 100 mls/hr IV Q6H [facility] Last Infusion: 08/16/23 08:50 Dose: Infused Levothyroxine Sodium (Levothyroxine Sodium 75 Mcg Tablet) 75 mcg PO DAILY@0600 [facility] Last Admin: 08/16/23 09:08 Dose: Not Given Morphine Sulfate (Morphine Sulfate 4 Mg/Ml Cartridge) 3 mg IVPUSH Q3H PRN; Protocol PRN Reason: Pain, Severe (Pain Scale 7-10) Last Admin: 08/16/23 08:14 Dose: 3 mg Ondansetron HCl (Ondansetron Hcl 4 Mg/2 Ml Vial) 4 mg IVPUSH ONCE PRN PRN Reason: Nausea and Vomiting Sodium Chloride (0.9 % Sodium Chloride Flush 3 Ml Syringe) 3 ml IVFLUSH QSHIFT [facility] Last Admin: 08/16/23 07:22 Dose: Not Given Home Medications Medication Instructions Recorded Confirmed Last Taken Type Probiotic 1 cap PO DAILY 08/15/23 08/15/23 Unknown History atorvastatin 10 mg tablet 10 mg PO BEDTIME 08/15/23 08/15/23 Unknown History levothyroxine 75 mcg tablet 75 mcg PO DAILY 08/15/23 08/15/23 Unknown History metformin 850 mg tablet 850 mg PO DAILY 08/15/23 08/15/23 Unknown History Exam Height,Weight and Vital Signs: Height 5 ft Weight 56 kg Last Vital Signs Temp 99.4 F 08/16/23 10:21 Pulse 91 08/16/23 10:21 Resp 16 08/16/23 10:21 BP 115/46 L 08/16/23 10:21 Pulse Ox 93 08/16/23 10:21 O2 Del Method Room Air 08/16/23 10:21 Pertinent Lab Results Pertinent Lab Results: Laboratory Tests 08/15/23 08/15/23 08/16/23 15:02 21:04 09:28 WBC 26.5 H 16.1 H RBC 5.17 4.22 Hgb 15.9 12.9 Hct 46.7 38.6 MCV 90.3 91.5 MCH 30.8 30.6 MCHC 34.0 33.4 RDW 13.4 13.2 Plt Count 168 145 L MPV 11.4 11.8 Immature Gran % (Auto) 0.7 H 0.6 H Neut % (Auto) 90.2 H 93.5 H Lymph % (Auto) 4.3 L 1.8 L [place] % (Auto) 4.6 2.9 Eos % (Auto) 0.0 0.9 Baso % (Auto) 0.2 0.3 Lymph # (Auto) 1.2 0.3 L [place] # (Auto) 1.2 0.5 Eos # (Auto) 0.0 0.2 Baso # (Auto) 0.1 0.1 Abs Immat Gran (auto) 0.18 H 0.10 H Absolute Neuts (auto) 23.9 H 15.1 H Absolute Nucleated RBC 0.000 0.000 Nucleated RBC % (auto) 0.0 0.0 Smear Tech's Comments VERIFIED VERIFIED Sodium 132 L 136 Potassium 3.3 2.8 L Chloride 98 105 Carbon Dioxide 23 21 L Anion Gap 14 13 BUN 38 H 25 H Creatinine 1.20 0.73 Estim Creat Clear Calc 26.9 44.2 Estimated GFR 43 > 60 Random Glucose 161 H 108 Lactic Acid 1.0 Calcium 9.4 8.1 L D Total Bilirubin 1.5 H 1.3 H Direct Bilirubin 0.7 H AST 18 35 H ALT 11 19 Alkaline Phosphatase 118 H 118 H Total Protein 8.1 H 6.2 L Albumin 3.8 2.8 L Lipase 15 Urine Color Dark Yellow Urine Appearance Turbid Urine pH 5.0 Ur Specific [place] >= 1.030 H Urine Protein 100 (2+) H Urine Glucose (UA) 100 H Urine Ketones Trace Urine Blood Trace H Urine Nitrite Positive H Ur Leukocyte Esterase Moderate (2+) H Urine RBC 6-10 H Urine WBC 11-20 Ur Squamous Epith Cells >20 Urine Bacteria 4+ Hyaline Casts >20 Granular Casts Present COVID-19 (ESTELLE) Negative COVID-19 Clin Com See Note Influenza Type A (RUBÉN) Negative Influenza Type B (RUBÉN) Negative Influenza A & B Note See Note Airway Mallampati Class: II TM Dist: >3cm Neck ROM: Full Partial: Lower Loose/Missing/Broken Teeth: Yes and Lower Heart: rrr Lungs: clear Assessment and Plan Final Anesthetic Review Family History of Problems with Anesthesia: No History of Problems with Anesthesia: No NPO: Yes ASA Class: III Final Preanesthetic Review: No Changes in Pt Med Stat, Meds/Allgs Chart Reviewed and Consent Obtained/Reviewed Patient Risk: Intermediate Procedure Risk: Low Anesthetic Plan Anesthetic Plan: GA Disposition: Standard PACU
--- NOTE | 2023-08-16 13:39 | W.PM.OPN ---
Operative Note Operative Note Date of Service: 08/16/23 Narrative: Preoperative diagnosis: Acute cholecystitis Postop diagnosis: Acute gangrenous phlegmonous cholecystitis Procedure [] laparoscopic cholecystectomy Surgeon: [] [facility] [employer] Director: [] Len Type of Anesthesia: [General Indication for surgery: [] A gangrenous phlegmonous pus filled gallbladder with omental and transverse colonic adhesions to it. Markedly intrahepatic gallbladder. Findings: [] Patient brought to the operating room, placed on table in supine position, after adequate level of general anesthesia was induced, the patient's abdomen was prepped and draped in usual sterile fashion. Using a supraumbilical curvilinear incision, Simpson technique was used to insufflate down the cavity to 15 mm of CO2. Upper midline and right subcostal ports were placed under direct laparoscopic view, and the patient placed in reverse Trendelenburg position, tilted to the left. Findings were as noted above. Omental and transverse colonic adhesions were swept off the phlegmonous tense , necrotic gallbladder. Because of its marked turgidity, the gallbladder was aspirated with an aspirating device to decompress it and was then grasped with laparoscopic graspers, and retracted superiorly and laterally. [place] was approached with the cystic artery and cystic duct were each identified, circumferentially skeletonized, traced directly into the gallbladder, and critical view obtained. Each was clipped proximally x2, distally x1, and transected. Gallbladder which was markedly intrahepatic and necrotic was cauterized from the gallbladder fossa using Bovie. Specimen was placed in an Endo-Catch bag, a retrieved through the umbilical port. Abdominal cavity was very copiously irrigated, and secured hemostasis. A Patrice-Naranjo drain was left in the gallbladder fossa and exited the right lateral port site. This was secured to the skin using 2-0 nylon. All ports were removed under direct laparoscopic view. Wounds were closed in following manner; umbilical wound is fascia reapproximated using interrupted 0 Vicryl sutures. Skin wounds were closed using subcuticular 4-0 Vicryl sutures followed by Steri-Strips and sterile dressings. Wounds were infiltrated 0.5% Marcaine at completion. Sponge, needle, instrument counts reported correct. Patient tolerated the procedure well and emerged anesthesia stable condition. EBL minimal
[2023-08-16] MEDS: Acetaminophen 325 MG TABLET 650 MG PO (14:39)
--- NOTE | 2023-08-16 15:46 | MHC.CM.PN ---
IMM delivered. Patient is from [place] where she lives alone and is functionally independent. No services or medical equipment. She is currently visiting with her daughter in [place]. PCP: Patient states she has a PCP in [place], but cannot remember the name HCP: No HCP on file, does not wish to complete at this time DP: Goal is return home w/ daughter, self care, daughter to transport. CM will continue to follow.
[2023-08-16] MEDS: 0.9 % Sodium Chloride Flush 3 ML SYRINGE IVFLUSH (15:50)
[2023-08-17] VITALS: BP 109/54; PULSE 65; RESP 16; TEMP 36; O2SAT 92
[2023-08-17] MEDS: Piperacillin Sodium/Tazobactam 3.375 GM in 0.9 % Sodium Chloride 50 ML IV ×2 (02:26→08:07)
[2023-08-17 03:18] VITALS: BP 112/54; PULSE 62; RESP 16; TEMP 36; O2SAT 93
[2023-08-17 06:27] LABS: MANUAL DIFF FLAG NO
[2023-08-17 06:34] LABS: Basophils Percent Auto 0.2 % (0-2); Hematocrit 34.8 % (37.0-47.0); Hemoglobin 11.7 g/dl (12.0-16.0); Imm Gran Abs Auto 0.04 X10*3/uL (0.00-0.03); Imm Gran Pct Auto 0.4 % (0.0-0.4); Lymphocytes Absolute Auto 0.6 X10*3/uL (1.2-4.9); Lymphocytes Percent Auto 5.8 % (20-40); Mean Corpuscular HGB Conc 33.6 g/dl (31.0-35.0); Mean Corpuscular Hemoglobin 30.5 pg (27.0-33.0); Mean Corpuscular Volume 90.6 fL (80.0-98.0); Mean Platelet Volume 11.4 fL (9.4-12.3); Monocytes Absolute Auto 0.7 X10*3/uL (0.1-1.2); Monocytes Percent Auto 6.2 % (2-11); Neutrophils Absolute Auto 9.3 x10*3/uL (2.0-8.3); Neutrophils Percent Auto 87.4 % (45-73); Platelet Count 132 X10*3/uL (160-400); Red Blood Count 3.84 X10*6/uL (4.20-5.50); Red Cell Distribution Width 13.2 % (11.0-16.0); White Blood Count 10.6 X10*3/uL (4.8-10.8)
[2023-08-17 07:27] VITALS: BP 123/59; PULSE 63; RESP 17; TEMP 36.1; O2SAT 92
--- NOTE | 2023-08-17 08:37 | HO.PM.IMPN ---
Subjective Subjective Date of Service: 08/17/23 Interval History: much better Physical Exam Vital Signs: Vital Signs: Last Vital Signs Temp 97.0 F 08/17/23 07:27 Pulse 63 08/17/23 07:27 Resp 17 08/17/23 07:27 BP 123/59 L 08/17/23 07:27 Pulse Ox 92 08/17/23 07:27 O2 Del Method Room Air 08/17/23 07:27 BMI result Body Mass Index 24.1 Const: General: comfortable, no acute distress and alert Orientation/consciousness: patient oriented x3 Resp: Effort & Inspection: normal respiratory effort GI: Inspection: No distended and Yes scar Palpation (GI): Soft to palpation, Tenderness to palpation present (GI) in the RUQ, no guarding and not rigid Skin: General skin exam: no rashes or lesions noted and no jaundice Neuro: General: patient oriented x3 Objective Data Active Medications Acetaminophen (Acetaminophen 325 Mg Tablet) 650 mg PO Q6H PRN PRN Reason: Pain, Mild (Pain Scale 1-3) Last Admin: 08/17/23 08:08 Dose: 650 mg Documented By: SHERWNI Atorvastatin Calcium (Atorvastatin Calcium 10 Mg Tablet) 10 mg PO BEDTIME [facility] Last Admin: 08/16/23 20:26 Dose: 10 mg Documented By: KIRILL Dextrose (Dextrose 50 % 25 Gm/50 Ml Syringe) 25 gm IVPUSH Q15M PRN; Protocol PRN Reason: per Hypoglycemia Standing Ord. Famotidine (Famotidine 20 Mg Tablet) 20 mg PO BID [facility] Last Admin: 08/17/23 08:08 Dose: 20 mg Documented By: SHERWIN Glucose (Glucose Gel 15 Gm Gel..Gram.) 15 gm PO Q15M PRN; Protocol PRN Reason: per Hypoglycemia Standing Ord. Heparin Sodium (Porcine) (Heparin Sodium,Porcine 5,000 Unit/Ml Vial) 5,000 unit SUBCUT BID [facility] Last Admin: 08/16/23 07:25 Dose: Not Given Documented By: SHERWIN Non-Admin Reason: preop Sodium Chloride (Ns) 1,000 mls @ 84 mls/hr IVCONT .[id number] [facility] Last Admin: 08/17/23 05:55 Dose: 84 mls/hr Documented By: KIRILL Piperacillin Sod/Tazobactam (Sod 3.375 gm/ Sodium Chloride) 50 mls @ 100 mls/hr IV Q6H [facility] Last Admin: 08/17/23 08:07 Dose: 100 mls/hr Documented By: SHERWIN Insulin Human Lispro (Insulin Lispro 100 Unit/Ml 3 Ml Vial) 0 unit SUBCUT QIDACHS [facility]; Protocol Last Admin: 08/17/23 07:51 Dose: Not Given Documented By: SHERWIN Non-Admin Reason: No Insulin Coverage Levothyroxine Sodium (Levothyroxine Sodium 75 Mcg Tablet) 75 mcg PO DAILY@0600 [facility] Last Admin: 08/17/23 05:52 Dose: 75 mcg Documented By: KIRILL Morphine Sulfate (Morphine Sulfate 4 Mg/Ml Cartridge) 3 mg IVPUSH Q3H PRN; Protocol PRN Reason: Pain, Severe (Pain Scale 7-10) Last Admin: 08/16/23 08:14 Dose: 3 mg Documented By: SHERWIN Oxycodone HCl (Oxycodone Hcl Immed Release 5 Mg Tablet) 5 mg PO Q4H PRN PRN Reason: Pain, Moderate(Pain Scale 4-6) Last Admin: 08/16/23 20:28 Dose: 5 mg Oxycodone HCl (Oxycodone Hcl Immed Release 5 Mg Tablet) 10 mg PO Q4H PRN PRN Reason: Pain, Severe (Pain Scale 7-10) Sodium Chloride (0.9 % Sodium Chloride Flush 3 Ml Syringe) 3 ml IVFLUSH QSHIFT [facility] Last Admin: 08/17/23 06:59 Dose: Not Given Documented By: SHERWIN Non-Admin Reason: IV Running Labs 08/17/23 05:49 08/16/23 09:28 Labs: Laboratory Results - last 24 hr 08/16/23 08/16/23 08/16/23 09:28 12:18 16:09 MCV 91.5 MCH 30.6 MCHC 33.4 RDW 13.2 Plt Count 145 L MPV 11.8 Immature Gran % (Auto) 0.6 H Neut % (Auto) 93.5 H Lymph % (Auto) 1.8 L [place] % (Auto) 2.9 Eos % (Auto) 0.9 Baso % (Auto) 0.3 Lymph # (Auto) 0.3 L [place] # (Auto) 0.5 Eos # (Auto) 0.2 Baso # (Auto) 0.1 Abs Immat Gran (auto) 0.10 H Absolute Neuts (auto) 15.1 H Absolute Nucleated RBC 0.000 Nucleated RBC % (auto) 0.0 Smear Tech's Comments VERIFIED Anion Gap 13 Estim Creat Clear Calc 44.2 Estimated GFR > 60 POC Glucose 84 116 H Random Glucose 108 Calcium 8.1 L D Total Bilirubin 1.3 H AST 35 H ALT 19 Alkaline Phosphatase 118 H Total Protein 6.2 L Albumin 2.8 L 08/16/23 08/17/23 08/17/23 20:27 05:49 07:30 MCV 90.6 MCH 30.5 MCHC 33.6 RDW 13.2 Plt Count 132 L MPV 11.4 Immature Gran % (Auto) 0.4 Neut % (Auto) 87.4 H Lymph % (Auto) 5.8 L [place] % (Auto) 6.2 Eos % (Auto) 0.0 Baso % (Auto) 0.2 Lymph # (Auto) 0.6 L [place] # (Auto) 0.7 Eos # (Auto) 0.0 Baso # (Auto) 0.0 Abs Immat Gran (auto) 0.04 H Absolute Neuts (auto) 9.3 H Absolute Nucleated RBC 0.000 Nucleated RBC % (auto) 0.0 Smear Tech's Comments Anion Gap Estim Creat Clear Calc Estimated GFR POC Glucose 140 H 120 H Random Glucose Calcium Total Bilirubin AST ALT Alkaline Phosphatase Total Protein Albumin Microbiology Microbiology Results: Microbiology 08/15/23 21:04 Blood Culture - Preliminary Blood - Venous No growth after 24 hours. 08/15/23 21:04 Blood Culture - Preliminary Blood - Venous No growth after 24 hours. 08/15/23 22:02 Urine Culture - Preliminary Urine clean catch - Urine arguelles top Culture too young to evaluate. Assessment and Plan (1) Acute cholecystitis: Status: Acute Plan 83F PMH dm, hld, hypothyroid admitted with acute cholecystitis Acute cholecystitis post op day 1 management per surgery acute hypokalemia replace and monitor UTI continue zosyn follow up cultures Hypothyroidism Continue levothyroxine Hyperlipidemia Continue atorvastatin diabetes mellitus Hold metformin. Blood glucose monitoring closely. Insulin sliding scale for now. History of vitamin B12 deficiency Receiving B12 injections as outpatient. Abnormal endometrium Pelvic US as an outpatient. VTE prophylaxis: Heparin. full code patient appears medically stable, will sign off for now, please recall if needed Quality Stroke Does the patient have a stroke diagnosis?: No VTE Prior VTE?: No VTE Risk Level:: Surgical - moderate VTE Device Contraindication: N/A - Device Ordered VTE Drug Contraindication: N/A - Med Ordered
[2023-08-17 12:00] VITALS: BP 137/64; PULSE 66; RESP 17; TEMP 36.1; O2SAT 95
--- NOTE | 2023-08-17 14:20 | HO.POSTANES ---
Post Anesthesia Evaluation Post Anesthesia Evaluation Date of Service: 08/17/23 Vital Signs: Vital Signs Temp Pulse Resp BP Pulse Ox O2 Del Method 08/17/23 12:00 96.9 F 66 17 137/64 95 Room Air 08/17/23 07:27 97.0 F 63 17 123/59 L 92 Room Air 08/17/23 03:18 96.8 F 62 16 112/54 L 93 Room Air Anesthesia: General Endotracheal-GETA Mental Status: Awake Pain Control: Satisfactory Nausea/Vomiting: None Hydration: Adequate Anesthesia-Related Issues: No Anes. Related Issues
--- NOTE | 2023-08-17 14:34 | PM.PNGS ---
Subjective Subjective Date of Service: 08/17/23 Interval history: Feels improved today, mild incisional pain. Tolerating diet. OOB and ambulating. Does not feel ready to go home. Physical Exam Vital Signs: Vital Signs: Last Vital Signs Temp 96.9 F 08/17/23 12:00 Pulse 66 08/17/23 12:00 Resp 17 08/17/23 12:00 BP 137/64 08/17/23 12:00 Pulse Ox 95 08/17/23 12:00 O2 Del Method Room Air 08/17/23 12:00 BMI result Body Mass Index 24.1 Const: General: comfortable, no acute distress and alert Orientation/consciousness: patient oriented x3 Resp: Effort & Inspection: normal respiratory effort GI: Other: NATE drain scanty output, serosanguineous Inspection: No distended and Yes incision (clean) Palpation (GI): Soft to palpation, Tenderness to palpation present (GI) (mild ), no guarding and not rigid Percussion: Yes normal to percussion Skin: General skin exam: no rashes or lesions noted Neuro: General: patient oriented x3 Objective Data Active Medications Acetaminophen (Acetaminophen 325 Mg Tablet) 650 mg PO Q6H PRN PRN Reason: Pain, Mild (Pain Scale 1-3) Last Admin: 08/17/23 08:08 Dose: 650 mg Documented By: SHERWIN Atorvastatin Calcium (Atorvastatin Calcium 10 Mg Tablet) 10 mg PO BEDTIME [facility] Last Admin: 08/16/23 20:26 Dose: 10 mg Documented By: KIRILL Dextrose (Dextrose 50 % 25 Gm/50 Ml Syringe) 25 gm IVPUSH Q15M PRN; Protocol PRN Reason: per Hypoglycemia Standing Ord. Famotidine (Famotidine 20 Mg Tablet) 20 mg PO BID [facility] Last Admin: 08/17/23 08:08 Dose: 20 mg Documented By: SHERWIN Glucose (Glucose Gel 15 Gm Gel..Gram.) 15 gm PO Q15M PRN; Protocol PRN Reason: per Hypoglycemia Standing Ord. Heparin Sodium (Porcine) (Heparin Sodium,Porcine 5,000 Unit/Ml Vial) 5,000 unit SUBCUT BID [facility] Last Admin: 08/16/23 07:25 Dose: Not Given Documented By: SHERWIN Non-Admin Reason: preop Sodium Chloride (Ns) 1,000 mls @ 84 mls/hr IVCONT .[id number] [facility] Last Admin: 08/17/23 05:55 Dose: 84 mls/hr Documented By: KIRILL Piperacillin Sod/Tazobactam (Sod 3.375 gm/ Sodium Chloride) 50 mls @ 100 mls/hr IV Q6H [facility] Last Admin: 08/17/23 14:14 Dose: 100 mls/hr Documented By: SHERWIN Insulin Human Lispro (Insulin Lispro 100 Unit/Ml 3 Ml Vial) 0 unit SUBCUT QIDACHS [facility]; Protocol Last Admin: 08/17/23 12:02 Dose: 4 unit Documented By: ELIECER Levothyroxine Sodium (Levothyroxine Sodium 75 Mcg Tablet) 75 mcg PO DAILY@0600 [facility] Last Admin: 08/17/23 05:52 Dose: 75 mcg Documented By: KIRILL Morphine Sulfate (Morphine Sulfate 4 Mg/Ml Cartridge) 3 mg IVPUSH Q3H PRN; Protocol PRN Reason: Pain, Severe (Pain Scale 7-10) Last Admin: 08/16/23 08:14 Dose: 3 mg Documented By: SHERWIN Oxycodone HCl (Oxycodone Hcl Immed Release 5 Mg Tablet) 5 mg PO Q4H PRN PRN Reason: Pain, Moderate(Pain Scale 4-6) Last Admin: 08/16/23 20:28 Dose: 5 mg Oxycodone HCl (Oxycodone Hcl Immed Release 5 Mg Tablet) 10 mg PO Q4H PRN PRN Reason: Pain, Severe (Pain Scale 7-10) Last Admin: 08/17/23 14:14 Dose: 10 mg Documented By: SHERWIN Sodium Chloride (0.9 % Sodium Chloride Flush 3 Ml Syringe) 3 ml IVFLUSH QSHIFT [facility] Last Admin: 08/17/23 06:59 Dose: Not Given Documented By: SHERWIN Non-Admin Reason: IV Running Labs 08/17/23 09:27 08/17/23 09:27 Labs: Laboratory Results - last 24 hr 08/16/23 08/16/23 08/17/23 16:09 20:27 05:49 MCV 90.6 MCH 30.5 MCHC 33.6 RDW 13.2 Plt Count 132 L MPV 11.4 Immature Gran % (Auto) 0.4 Neut % (Auto) 87.4 H Lymph % (Auto) 5.8 L [place] % (Auto) 6.2 Eos % (Auto) 0.0 Baso % (Auto) 0.2 Lymph # (Auto) 0.6 L [place] # (Auto) 0.7 Eos # (Auto) 0.0 Baso # (Auto) 0.0 Abs Immat Gran (auto) 0.04 H Absolute Neuts (auto) 9.3 H Absolute Nucleated RBC 0.000 Nucleated RBC % (auto) 0.0 Anion Gap Estim Creat Clear Calc Estimated GFR POC Glucose 116 H 140 H Random Glucose Calcium Magnesium Total Bilirubin Direct Bilirubin AST ALT Alkaline Phosphatase Total Protein Albumin 08/17/23 08/17/23 08/17/23 07:30 09:27 11:33 MCV 90.6 MCH 31.5 MCHC 34.8 RDW 13.2 Plt Count 141 L MPV 10.9 Immature Gran % (Auto) Neut % (Auto) Lymph % (Auto) [place] % (Auto) Eos % (Auto) Baso % (Auto) Lymph # (Auto) [place] # (Auto) Eos # (Auto) Baso # (Auto) Abs Immat Gran (auto) Absolute Neuts (auto) Absolute Nucleated RBC 0.000 Nucleated RBC % (auto) 0.0 Anion Gap 11 L Estim Creat Clear Calc 44.8 Estimated GFR > 60 POC Glucose 120 H 203 H Random Glucose 203 H Calcium 7.6 L D Magnesium 2.1 Total Bilirubin 0.7 Direct Bilirubin 0.5 AST 83 H ALT 49 H Alkaline Phosphatase 87 Total Protein 5.5 L Albumin 2.4 L Microbiology Microbiology Results: Microbiology 08/15/23 22:02 Urine Culture - Preliminary Urine clean catch - Urine arguelles top Gram negative donna 08/15/23 21:04 Blood Culture - Preliminary Blood - Venous No growth after 24 hours. 08/15/23 21:04 Blood Culture - Preliminary Blood - Venous No growth after 24 hours. Procedures Date of Service Date of Service: 08/17/23 Progress Note: A&P Assessment and plan (1) Acute cholecystitis: Status: Acute (2) S/P laparoscopic cholecystectomy: Status: Acute Plan POD #1 s/p lap jeny for gangrenous acute cholecystitis. Doing well post op, abd benign, dressings c/d/i. NATE drain with scant serosanguineous nonbilious and therefore removed. Likely home tomorrow if remains stable. Time Spent With Patient Time: Total time managing care of this patient today ____ minutes. Quality Stroke Does the patient have a stroke diagnosis?: No VTE Prior VTE?: No VTE Risk Level:: Surgical - moderate VTE Device Contraindication: N/A - Device Ordered VTE Drug Contraindication: N/A - Med Ordered
[2023-08-17 15:38] VITALS: BP 142/65; PULSE 60; RESP 18; TEMP 36.3; O2SAT 94
[2023-08-17 19:52] VITALS: BP 131/60; PULSE 69; RESP 18; TEMP 36.6; O2SAT 94
[2023-08-18 03:47] VITALS: BP 149/65; PULSE 69; RESP 18; TEMP 36.2; O2SAT 94
[2023-08-18 07:13] VITALS: BP 148/67; PULSE 69; RESP 16; TEMP 36.3; O2SAT 96
--- NOTE | 2023-08-18 08:16 | PM.PNGS ---
Subjective Subjective Date of Service: 08/18/23 Interval history: Doing well, pain well controlled, tolerating diet. OOB and ambulated yesterday. Feels ready to go home today. Physical Exam Vital Signs: Vital Signs: Last Vital Signs Temp 97.4 F 08/18/23 07:13 Pulse 69 08/18/23 07:13 Resp 16 08/18/23 07:13 BP 148/67 H 08/18/23 07:13 Pulse Ox 96 08/18/23 07:13 O2 Del Method Room Air 08/18/23 07:13 BMI result Body Mass Index 24.1 Const: General: comfortable, no acute distress and alert Orientation/consciousness: patient oriented x3 Resp: Effort & Inspection: normal respiratory effort GI: Inspection: No distended and Yes incision (clean) Palpation (GI): Soft to palpation, Tenderness to palpation present (GI) (mild incisional), no guarding and not rigid Skin: General skin exam: no rashes or lesions noted and no jaundice Neuro: General: patient oriented x3 Objective Data Active Medications Acetaminophen (Acetaminophen 325 Mg Tablet) 650 mg PO Q6H PRN PRN Reason: Pain, Mild (Pain Scale 1-3) Last Admin: 08/18/23 03:57 Dose: 650 mg Documented By: KIRILL Atorvastatin Calcium (Atorvastatin Calcium 10 Mg Tablet) 10 mg PO BEDTIME [facility] Last Admin: 08/17/23 20:33 Dose: 10 mg Documented By: KIRILL Dextrose (Dextrose 50 % 25 Gm/50 Ml Syringe) 25 gm IVPUSH Q15M PRN; Protocol PRN Reason: per Hypoglycemia Standing Ord. Famotidine (Famotidine 20 Mg Tablet) 20 mg PO BID [facility] Last Admin: 08/17/23 20:33 Dose: 20 mg Documented By: KIRILL Glucose (Glucose Gel 15 Gm Gel..Gram.) 15 gm PO Q15M PRN; Protocol PRN Reason: per Hypoglycemia Standing Ord. Heparin Sodium (Porcine) (Heparin Sodium,Porcine 5,000 Unit/Ml Vial) 5,000 unit SUBCUT BID [facility] Last Admin: 08/16/23 07:25 Dose: Not Given Documented By: COTEMA Non-Admin Reason: preop Piperacillin Sod/Tazobactam (Sod 3.375 gm/ Sodium Chloride) 50 mls @ 100 mls/hr IV Q6H [facility] Last Infusion: 08/18/23 03:17 Dose: Infused Documented By: KIRILL Insulin Human Lispro (Insulin Lispro 100 Unit/Ml 3 Ml Vial) 0 unit SUBCUT QIDACHS [facility]; Protocol Last Admin: 08/18/23 07:14 Dose: Not Given Documented By: DIANE Non-Admin Reason: No Insulin Coverage Levothyroxine Sodium (Levothyroxine Sodium 75 Mcg Tablet) 75 mcg PO DAILY@0600 [facility] Last Admin: 08/18/23 05:13 Dose: 75 mcg Documented By: KIRILL Morphine Sulfate (Morphine Sulfate 4 Mg/Ml Cartridge) 3 mg IVPUSH Q3H PRN; Protocol PRN Reason: Pain, Severe (Pain Scale 7-10) Last Admin: 08/16/23 08:14 Dose: 3 mg Documented By: SHERWIN Oxycodone HCl (Oxycodone Hcl Immed Release 5 Mg Tablet) 5 mg PO Q4H PRN PRN Reason: Pain, Moderate(Pain Scale 4-6) Last Admin: 08/18/23 03:58 Dose: 5 mg Documented By: KIRILL Oxycodone HCl (Oxycodone Hcl Immed Release 5 Mg Tablet) 10 mg PO Q4H PRN PRN Reason: Pain, Severe (Pain Scale 7-10) Last Admin: 08/17/23 14:14 Dose: 10 mg Documented By: SHERWIN Sodium Chloride (0.9 % Sodium Chloride Flush 3 Ml Syringe) 3 ml IVFLUSH [facility] Last Admin: 08/17/23 20:34 Dose: 3 ml Documented By: KIRILL Labs 08/17/23 09:27 08/17/23 09:27 Labs: Laboratory Results - last 24 hr 08/17/23 08/17/23 08/17/23 09:27 11:33 16:25 MCV 90.6 MCH 31.5 MCHC 34.8 RDW 13.2 Plt Count 141 L MPV 10.9 Absolute Nucleated RBC 0.000 Nucleated RBC % (auto) 0.0 Anion Gap 11 L Estim Creat Clear Calc 44.8 Estimated GFR > 60 POC Glucose 203 H 127 H Random Glucose 203 H Calcium 7.6 L D Magnesium 2.1 Total Bilirubin 0.7 Direct Bilirubin 0.5 AST 83 H ALT 49 H Alkaline Phosphatase 87 Total Protein 5.5 L Albumin 2.4 L 08/17/23 08/18/23 20:22 07:07 MCV MCH MCHC RDW Plt Count MPV Absolute Nucleated RBC Nucleated RBC % (auto) Anion Gap Estim Creat Clear Calc Estimated GFR POC Glucose 181 H 83 Random Glucose Calcium Magnesium Total Bilirubin Direct Bilirubin AST ALT Alkaline Phosphatase Total Protein Albumin Microbiology Microbiology Results: Microbiology 08/15/23 21:04 Blood Culture - Preliminary Blood - Venous No growth after 48 hours. 08/15/23 21:04 Blood Culture - Preliminary Blood - Venous No growth after 48 hours. 08/15/23 22:02 Urine Culture - Preliminary Urine clean catch - Urine arguelles top Gram negative donna Procedures Date of Service Date of Service: 08/18/23 Progress Note: A&P Assessment and plan (1) S/P laparoscopic cholecystectomy: Status: Acute (2) Acute cholecystitis: Status: Acute Plan Doing well, stable for dc to home today. Will dc on augmentin. Patient comfortable with plan. She is from [place]- can f/u here in office if remains of f/u with PCP in [place]. Will discuss home antihyperglycemics with hospitalist nicole. Time Spent With Patient Time: Total time managing care of this patient today ____ minutes. Quality Stroke Does the patient have a stroke diagnosis?: No VTE Prior VTE?: No VTE Risk Level:: Surgical - moderate VTE Device Contraindication: N/A - Device Ordered VTE Drug Contraindication: N/A - Med Ordered
--- NOTE | 2023-08-18 09:50 | MHC.CM.PN ---
Per surgeon note patient is medically cleared for DC home no services. Daughter is at bedside to transport. RN aware. IMM delivered.
--- NOTE | 2023-08-25 10:08 | PM.DS ---
DS: Providers Provider Date of Service: 08/18/23 Date of admission: 08/15/23 21:53 Primary care physician: Unknown Physician Attending physician on admission: Saskia Britton Consults: 08/15/23 21:53 Consult to Hospitalist Routine Comment: Consulting Provider: Hospitalist Reason For Exam: preop clearance Attending physician on discharge: Umberto Rendon DS: Diagnosis Discharge Diagnosis (1) S/P laparoscopic cholecystectomy: Status: Acute (2) Acute cholecystitis: Status: Acute DS: Summary Hospital Course Hospital Course: HPI AT ADMISSION: Tabitha Clifton is a 83 year old female originally from [place] who comes in with her family today after having 4 days worth of not being able to eat and drink having nausea dry heaving. She has been able to take down just a little bit of some liquids and some light food. She lives in [place] but comes up here for the vacation with her family members visiting her daughter who lives in [place]. She speaks Vincentian understands little bit of anguish. She has had problems with her stomach and digestion before. It does not seem as though she knew that she had gallstones however. She has no sick contacts. Here in the emergency room her white count is elevated 26,000 her LFTs are little elevated and a CT scan shows a remarkably distended and thickened gallbladder with multiple stones consistent with cholecystitis. She complains of pain in the right upper quadrant radiating to her right flank and back area very typical of biliary disease. Disease she has had a and a hernia repair in her lower abdomen. Generally she is really quite healthy walks around moves around very well and is in overall good shape for 83-year-old. HOSPITAL COURSE: The patient was admitted to the surgical service for further treatment of her acute cholecystitis. She was kept NPO, started on IV hydration and IV abx. Medicine consult was obtained for management of her medical comorbdities. It was recommended to proceed with laparoscopic cholecystectomy, possible open. She was added onto the OR schedule for the following day. On 08/16/23, a laparoscopic cholecystectomy was performed by Dr. Rendon without complication. She had an gangrenous phlegmonous pus filled gallbladder. The patient tolerated the procedure well. She remained inpatient for 2 days post operatively for IV abx and pain control. Her NATE had scant nonbilious drainage and was removed. She was tolerating a solid diet with good pain control on oral analgesics and was out of bed without difficulty. Her abdomen was benign with clean incisions. She was discharged to home on 08/18/23 in stable condition on a course of oral Augmentin. She is to f/u with Dr. Rendon in 1 week. Status at Discharge Functional status at discharge: independent ambulation Overall status at discharge: patient is progressing back to baseline Time Attestation Discharge coordination time: Less than 30 minutes Quality: Safe Use of Opioids Does Pt have an Active Cancer Diagnosis on the Problem List?: No Quality: Stroke Does the patient have a stroke diagnosis?: No Physical Exam Vital Signs: Vital Signs: Last Vital Signs Temp 97.4 F 08/18/23 07:13 Pulse 69 08/18/23 07:13 Resp 16 08/18/23 07:13 BP 148/67 H 08/18/23 07:13 Pulse Ox 96 08/18/23 07:13 O2 Del Method Room Air 08/18/23 07:13 BMI result Body Mass Index 24.1 Const: General: comfortable, no acute distress and alert Orientation/consciousness: patient oriented x3 Resp: Effort & Inspection: normal respiratory effort GI: Inspection: No distended and Yes incision (clean) Palpation (GI): Soft to palpation, Tenderness to palpation present (GI) (very mild incisional), no guarding and not rigid Skin: General skin exam: no rashes or lesions noted and no jaundice Neuro: General: patient oriented x3 DS: Data Data Completed and Pending Completed studies during hospitalization [Text1]: Pending at discharge 08/16/23 13:17 Surgical [PTH] Routine Procedures Resection of Gallbladder, Percutaneous Endoscopic Approach (08/15/23) Discharge Plan Discharge Anticipated Discharge Date/Time: 08/17/23 12:30 Patient Disposition: Home, Self-Care Discharge Diagnosis: acute cholecystitis, s/p laparoscopic cholecystectomy Referrals: Umberto Rendon MD [Physician] - 1 Week Physician,Unknown J [Primary Care Provider] - 1 Week Discharge Medications: New amoxicillin-pot clavulanate 875-125 mg tablet 1 tab PO BID Qty: 10 0RF docusate sodium [Colace] 100 mg capsule 100 mg PO BID PRN (Reason: constipation) Qty: 30 0RF oxycodone 5 mg tablet 5 mg PO Q4H PRN (Reason: pain (scale score 7-10)) Qty: 26 0RF Rx Instructions: Partial Fill upon patient request. Continued atorvastatin 10 mg Tablet 10 mg PO BEDTIME metformin 850 mg Tablet 850 mg PO DAILY levothyroxine 75 mcg Tablet 75 mcg PO DAILY Probiotic 1 cap PO DAILY Discharge Orders: Discharge Order (Routine); Ordered 08/18/23 Ordered By: Mouna Harrington Diet: Diabetic diet Activity on Discharge: No heavy lifting Stand Alone Forms: Patient Portal Discharge page Activity Restrictions/Additional Instructions: Apply an ice pack for short intervals (20 minutes on, followed by at least 20 minutes off) for the first 2 days. Do not apply heat. Do not use creams, lotions, or topical antibiotics. These can cause infection or allergic reaction. Ok to shower 48 hours after your surgery. Remove dressings in 2 days and replace as needed. You have steri strips (small white cloth strips) covering your incision- these will fall off ~1 week. Follow up in office with Dr. Rendon in 1 week. ([phone]) No heavy lifting (>10lbs) or strenuous activity! Call Your Doctor If: -Your temperature exceeds 101.5? F -You experience excessive pain or swelling -You have an unexpected reaction to medication -You have excessive bleeding -You experience continued vomiting/nausea -Your incision begins to separate -Your incision shows signs of infection such as increased redness, swelling, excessive pain, drainage (light blood or clear fluid is normal) or heat Care Plan Goals: Return to baseline health and resume normal activities following recovery period. Health Concerns: acute gangrenous cholecystitis Plan of Treatment: s/p lap jeny PO abx f/u in office in 1 week Assessment: Doing well post op Discharge Date/Time: 08/18/23 10:04
== END 2023-08-18 10:04 | disposition home or self-care (01) | DRG 418 ==
LOC: HO.ED 21:48 → HO.EDOVER 22:18 → HO.S3 08-16 04:07
PROVIDERS: Physician Assistant Surgical; Surgery; Admitting Provider Surgery; Emergency Provider Emergency Medicine; Visit Provider Surgery
PROC: 0FT44ZZ Resection of Gallbladder, Percutaneous Endoscopic Approach (ICD-10-PCS; CPT 47562; principal; 2023-08-16 12:00)
DX: K81.0 Acute cholecystitis (principal); N39.0 Urinary tract infection, site not specified; E53.8 Deficiency of other specified B group vitamins; K52.9 Noninfective gastroenteritis and colitis, unspecified; E03.9 Hypothyroidism, unspecified; R93.89 Abnormal findings on diagnostic imaging of other specified body structures; E11.9 Type 2 diabetes mellitus without complications; E78.5 Hyperlipidemia, unspecified; Z79.84 Long term (current) use of oral hypoglycemic drugs; Z79.890 Hormone replacement therapy; Z79.899 Other long term (current) drug therapy
CPT/HCPCS: 36415; 74177; 80048; 80053; 80076; 81001; 82248; 82947; 83605; 83690; 83735; 85025; 85027; 87040; 87086; 87088; 87186; 87502; 87635; 88304; 93005; 99024; 99285; J0330; J0665; J1100; J1644; J2270; J2371; J2405; J2543; J2704; J3010; Q9967

== ENCOUNTER → 2023-08-15 21:47 | Outpatient (BNV) | payer MEDICARE, SELFPAY | PROVIDERS: Emergency Provider Emergency Medicine; Visit Provider Surgery | DX: Z90.49 Acquired absence of other specified parts of digestive tract (principal); K81.0 Acute cholecystitis | CPT/HCPCS: 47562; 99024; 99222; 99232 ==

== ENCOUNTER 2023-08-15 21:53 | Outpatient (BNV) | payer MEDICARE, SELFPAY | END 2023-08-16 10:22 | PROVIDERS: Admitting Provider Surgery; Emergency Provider Emergency Medicine; Visit Provider Internal Medicine Cardiovascular Disease | DX: I44.4 Left anterior fascicular block (principal); R94.31 Abnormal electrocardiogram [ECG] [EKG] | CPT/HCPCS: 93010 ==

== ENCOUNTER → 2023-08-15 21:53 | Outpatient (BNV) | payer MEDICARE, SELFPAY | PROVIDERS: Admitting Provider Surgery; Emergency Provider Emergency Medicine; Visit Provider Internal Medicine | DX: E78.5 Hyperlipidemia, unspecified (principal); E03.9 Hypothyroidism, unspecified; E11.8 Type 2 diabetes mellitus with unspecified complications; K81.0 Acute cholecystitis; N39.0 Urinary tract infection, site not specified | CPT/HCPCS: 99222; 99231 ==

== ENCOUNTER 2023-08-25 09:42 | Emergency (ER) | payer MEDICARE, SELFPAY ==
--- NOTE | ~2023-08-25 | CT_ITS ---
EXAMINATION: CT ANGIOGRAM OF THE CHEST WITH AND WITHOUT CONTRAST (CT PULMONARY ANGIOGRAM FOR PE) CLINICAL INFORMATION: Reason for Exam shortness of breath, s/p recent surgery COMPARISON: Chest x-ray August 25, 2023 TECHNIQUE: Prior to contrast administration, noncontrast localization images were obtained. Subsequently, multidetector volumetric imaging was performed from the thoracic inlet to below the diaphragms following the administration of 65 mL Omnipaque 350 intravenous contrast. No contrast reaction reported Sagittal, coronal, and MIP oblique sagittal reformatted images were obtained on the CT workstation, uploaded to PACS, and reviewed. This CT examination was performed using dose optimization techniques as appropriate, variously including the following: *Automated exposure control *Adjustment of mA and/or kV according to patient size (this includes techniques or standardized protocols for targeted exams where dose is matched to indication/reason for exam; i.e. extremities or head) *Use of iterative reconstruction technique Total exam dose-length product 197 mGy-cm FINDINGS: QUALITY OF STUDY/CONTRAST BOLUS: Satisfactory. PULMONARY ARTERIES: No pulmonary emboli. THORACIC AORTA: No aneurysm. There are vascular calcifications of thoracic aortic arch. LUNG: Focal linear and patchy airspace opacity at the posterior right lower lobe. This may be atelectasis and/or pneumonia. Left lung is normally aerated. Central bronchial airways are open. No bronchiectasis. PLEURA: No pleural effusion or pneumothorax. MEDIASTINUM: Normal heart size. No pericardial effusion. No hilar or mediastinal lymphadenopathy. No evidence of septal bowing or right heart strain. CORONARY ARTERY CALCIFICATION: None visualized on this study. CHEST WALL/AXILLA: No axillary or internal mammary lymphadenopathy. OSSEOUS STRUCTURES: No acute or suspicious osseous abnormality. There are popcorn like ossifications within the medullary cavity of the left proximal humerus. This is likely due to bone infarct or enchondroma. Multilevel degenerative spondylosis spine. UPPER ABDOMEN: Status post cholecystectomy No reflux of contrast into the hepatic veins to suggest elevated right heart pressures. CT/CT angio chest PE protocol IMPRESSION: 1. No evidence of pulmonary embolism. 2. Focal linear and patchy airspace opacity at the posterior right lower lobe. This may be atelectasis and/or pneumonia. VTE: negative.
--- NOTE | ~2023-08-25 | XR_ITS ---
EXAMINATION: XR CHEST CLINICAL INFORMATION: Cough and shortness of breath COMPARISON: None available. TECHNIQUE: 2 views of the chest were obtained. FINDINGS: Lungs are mildly hypoinflated. Bronchial padilla appear to be diffusely thickened. There are linear opacities of atelectasis in the right perihilar region and medial left upper lobe. Streaky and somewhat patchy opacity in the left lower lobe is nonspecific and could represent atelectasis or pneumonia depending upon clinical context. No pleural effusion. Cardiac silhouette is normal size. There is atherosclerotic calcification of the aorta. Clustered calcification of the left humeral metaphysis is consistent with enchondroma. Bones are diffusely osteopenic. Multilevel osteophyte formation of the thoracolumbar spine. Cholecystectomy clips in the upper abdomen. XR/XR chest 2V IMPRESSION: * Bronchial padilla are diffusely thickened -- as may be seen in patients with asthma or bronchitis. * There are a few linear streaks of atelectasis in each lung. The streaky, somewhat patchy opacity in the left lower lobe is nonspecific and could represent atelectasis or pneumonia.
[2023-08-25 09:45] VITALS: BP 115/67; PULSE 89; RESP 19; TEMP 36.6; O2SAT 94; BMI 25.4
--- NOTE | 2023-08-25 10:07 | ECG_ITS ---
Test Reason : WEAKNESS Blood Pressure : / mmHG Vent. Rate : 074 BPM Atrial Rate : 074 BPM P-R Int : 200 ms QRS Dur : 080 ms QT Int : 380 ms P-R-T Axes : 016 -45 034 degrees QTc Int : 421 ms Normal sinus rhythm Left anterior fascicular block Abnormal ECG When compared with ECG of 16-AUG-2023 10:22, No significant change was found Referred By: Roger Garcia Electronically Signed By:LEEANNE BOYER MD
--- NOTE | 2023-08-25 10:08 | ED_ITS ---
HPI - General Adult General Chief complaint: Upper Respiratory Symptoms Stated complaint: sob, weakness, fatigue Time Seen by Provider: 08/25/23 09:52 History of Present Illness HPI narrative: The patient is an 83-year-old woman who had her gallbladder removed 9 days ago because of acute cholecystitis. She was discharged on MondayAugust 18, 1 week ago, . Apparently she felt short of breath 2 days later and was taken to the emergency room at [facility] where she was told that she had a little bit of fluid on her lung but no particular diagnosis is made and no change in her management was made. She was kept on her Augmentin. The patient has continued to feel short of breath since then. She has been coughing. Weakness shortness of breath, and cough seemed to be her primary complaints. Her Augmentin finished 2 days ago on Monday. She has not had fevers. She has had ongoing right upper quadrant abdominal pain since her surgery. She has been taking Tylenol. She has been eating very little. She has been moving her bowels normally. Today she asked her daughter to bring her to the emergency room because of her persistent troubles with breathing and weakness. Related Data Home Medications Medication Instructions Recorded Confirmed Probiotic 1 cap PO DAILY 08/15/23 08/15/23 atorvastatin 10 mg tablet 10 mg PO BEDTIME 08/15/23 08/15/23 levothyroxine 75 mcg tablet 75 mcg PO DAILY 08/15/23 08/15/23 metformin 850 mg tablet 850 mg PO DAILY 08/15/23 08/15/23 Previous Rx's Medication Instructions Recorded amoxicillin 875 mg-potassium 1 tab PO BID #10 tabs 08/17/23 clavulanate 125 mg tablet docusate sodium 100 mg capsule 100 mg PO BID PRN constipation #30 08/17/23 (Colace) caps oxycodone 5 mg tablet 5 mg PO Q4H PRN pain (scale score 08/17/23 7-10) #26 tabs albuterol sulfate 90 mcg/actuation 2 puff inhalation Q4-6H PRN 08/25/23 aerosol inhaler shortness of breath or wheezing #8.5 grams Allergies Allergy/AdvReac Type Severity Reaction Status Date / Time No Known Allergies Allergy Verified 08/25/23 09:44 Review of Systems 2 Review of Systems: Yes all other systems are reviewed and are negative PMFSH Past Medical History Onset Date is defined in the Problem List Problems that require an onset date and time if occurred within 24 hrs of arrival to the ED Aortic Dissection and Rupture; Neurologic impairment; Cardiopulmonary Arrest; Endotracheal Intubation; Insertion or Replacement of Mechanical Circulatory Assist Device Medical History Hyperlipidemia Hypothyroidism Hypertension Type 2 diabetes mellitus Surgical History (Updated 08/17/23 @ 14:35 by Mouna Harrington PA-C) H/O hernia repair H/O: section Social History Social History Household Members: Family Housing: House Patient Tobacco Use Status: Never used Tobacco Second Hand Smoke Exposure: No service: No Physical Exam ED Vital Signs: Vital Signs - 24 hr 08/25/23 09:45 08/25/23 12:32 08/25/23 15:49 Temperature 98 F 98.4 F Pulse Rate 89 76 72 Respiratory Rate 19 12 20 Blood Pressure 115/67 132/68 136/67 Pulse Oximetry 94 94 96 Oxygen Delivery Method Room Air Room Air Room Air 08/25/23 16:23 08/25/23 16:25 Temperature 97.5 F Pulse Rate 76 73 Respiratory Rate 11 L 17 Blood Pressure 146/66 H Pulse Oximetry 94 Oxygen Delivery Method Room Air BMI result Body Mass Index 25.4 Const Other: The patient is a frail 83-year-old woman who was awake and alert. She is not in overt distress or overtly toxic in any way. She seems quite weak however. Eyes Other: Pupils are round equal, conjunctivae are clear, extraocular movements intact. Neck Other: No JVD, the neck is supple. No swelling. Resp Other: Lung sounds are clear bilaterally. Cardio Other: The patient has a regular rate and rhythm with no murmur. GI Other: The patient is tender in the right upper quadrant. The abdomen is otherwise soft and nontender. Skin Other: Skin is warm and dry. Neuro Other: The patient is a frail 83-year-old but she was awake and alert mental status. Cranial nerves are grossly intact. She moves her extremities normally and seems grossly neurologically intact. Extrem Other: No peripheral edema. No calf swelling or tenderness. No calf asymmetry Medications Administered Discontinued Medications Generic Name Dose Route Start Last Admin Trade Name Freq PRN Reason Stop Dose Admin Albuterol Sulfate 2 puff 08/25/23 16:00 08/25/23 16:21 Albuterol Sulfate 90 Mcg 8 Gm Inhaler INHALE 08/25/23 16:01 2 puff ONCE ONE Administration Iohexol 100 ml 08/25/23 14:21 08/25/23 14:22 Iohexol 350 Mg/Ml 100 Ml Infus..Btl IV 08/25/23 14:22 65 ml ONCE ONE Administration Medical Decision Making Medical Decision Making [facility] Narrative: The patient is very pleasant 83-year-old who is 8 days postoperative from a cholecystectomy done secondary to cholecystitis. She has been home for a week. She has been having persistent problems with shortness of breath. She was seen at the emergency room at [facility] 5 days ago on Monday. She had a fairly negative workup at that time. She finished a course of Augmentin that had been prescribed at the time of discharge from her cholecystitis admission last week. She finished this antibiotic 2 days ago. She continues to feel weak and has poor oral intake although she has no nausea or vomiting. She also feels short of breath and has been coughing. Her workup today including a CT pulmonary angiogram is quite reassuring. Her white count is normal. Differential is unremarkable. Other labs are unremarkable. Her CT pulmonary angiogram shows atelectasis but no pneumonia or pulmonary embolism. My overall impression is that the patient is somewhat deconditioned from the surgery and has not yet recovered. She was given an albuterol inhaler and instructed in the use of an inhaler with an AeroChamber. My hope is that this may help with her complaint of shortness of breath although she was not frankly wheezing. She will be discharged with her daughter and should follow-up with her regular providers. Lab Data 08/25/23 11:50 08/25/23 11:50 Labs: Lab Results 08/25/23 08/25/23 Range/Units 11:46 11:50 WBC 6.7 (4.8-10.8) X10*3/uL RBC 4.37 D (4.20-5.50) X10*6/uL Hgb 13.4 (12.0-16.0) g/dl Hct 40.2 D (37.0-47.0) % MCV 92.0 (80.0-98.0) fL MCH 30.7 (27.0-33.0) pg MCHC 33.3 (31.0-35.0) g/dl RDW 13.2 (11.0-16.0) % Plt Count 287 D (160-400) X10*3/uL MPV 9.9 (9.4-12.3) fL Immature Gran % (Auto) 0.3 (0.0-0.4) % Neut % (Auto) 65.0 (45-73) % Lymph % (Auto) 25.4 (20-40) % Kaufman % (Auto) 7.3 (2-11) % Eos % (Auto) 1.6 (0-4) % Baso % (Auto) 0.4 (0-2) % Lymph # (Auto) 1.7 (1.2-4.9) X10*3/uL Kaufman # (Auto) 0.5 (0.1-1.2) X10*3/uL Eos # (Auto) 0.1 (0.0-0.4) X10*3/uL Baso # (Auto) 0.0 (0.0-0.2) X10*3/uL Abs Immat Gran (auto) 0.02 (0.00-0.03) X10*3/uL Absolute Neuts (auto) 4.4 (2.0-8.3) x10*3/uL Absolute Nucleated RBC 0.000 (0.0-0.012) X10*3/uL Nucleated RBC % (auto) 0.0 (0.0-0.2) /100WBC PT 13.1 (11.1-13.3) SEC INR 1.1 (0.9-1.1) D-Dimer High Sensitivty 982 NG/ML Sodium 135 (135-145) mmol/L Potassium 4.4 (3.3-5.1) mmol/L Chloride 102 (96-108) mmol/L Carbon Dioxide 26 (22-29) mmol/L Anion Gap 11 L (12-20) BUN 8 L (9-16) mg/dL Creatinine 0.68 (0.5-1.4) mg/dL Estim Creat Clear Calc 48.5 Estimated GFR > 60 Random Glucose 83 (60-115) mg/dL Calcium 9.0 D (8.4-10.2) mg/dL Magnesium 2.1 (1.6-2.6) mg/dL Total Bilirubin 0.5 (0.0-1.0) mg/dL Direct Bilirubin 0.2 (0.0-0.5) mg/dL AST 26 (5-31) U/L ALT 18 (0-31) U/L Alkaline Phosphatase 87 (39-117) U/L Troponin I High Sens < 2.7 (<3.5-17.0) ng/L C-Reactive Protein 4.58 H (< or = 0.50) mg/dL B-Natriuretic Peptide 19 (<100) pg/mL Total Protein 7.7 (6.5-8.0) g/dL Albumin 3.4 L (3.5-5.0) g/dL Lipase 46 (8-78) U/L Urine Color Yellow Urine Appearance Clear Urine pH 5.5 (5.0-9.0) Ur Specific [place] 1.010 (1.005-1.025) Urine Protein Negative (Neg-Trace) mg/dL Urine Glucose (UA) Negative (Negative) mg/dL Urine Ketones Negative (Negative) mg/dL Urine Blood Negative (Negative) Urine Nitrite Negative (Negative) Ur Leukocyte Esterase Negative (Negative) COVID-19 (ESTELLE) Negative (Negative) COVID-19 Clin Com See Note Influenza Type A (RUBÉN) Negative (Negative) Influenza Type B (RUBÉN) Negative (Negative) Influenza A & B Note See Note Discharge Plan Discharge Clinical Impression: Weakness, Shortness of breath, Cough Patient Disposition: Home, Self-Care Additional Instructions: Your testing in the emergency room today is largely reassuring. I have sent a prescription for an albuterol inhaler. I would recommend trying this medication to see if it helps with your breathing. You may use 2 puffs every 4 hours as needed. Continue your other medications. Please follow-up with your surgeon soon and also with your regular doctor. Return to the emergency room if worse. Prescriptions: New albuterol sulfate 90 mcg/actuation HFA aerosol inhaler 2 puff inhalation Q4-6H PRN (Reason: shortness of breath or wheezing) Qty: 8.5 0RF No Action atorvastatin 10 mg Tablet 10 mg PO BEDTIME metformin 850 mg Tablet 850 mg PO DAILY levothyroxine 75 mcg Tablet 75 mcg PO DAILY Probiotic 1 cap PO DAILY amoxicillin-pot clavulanate 875-125 mg tablet 1 tab PO BID Qty: 10 0RF docusate sodium [Colace] 100 mg capsule 100 mg PO BID PRN (Reason: constipation) Qty: 30 0RF oxycodone 5 mg tablet 5 mg PO Q4H PRN (Reason: pain (scale score 7-10)) Qty: 26 0RF Rx Instructions: Partial Fill upon patient request. Discharge Date/Time: 08/25/23 16:40
[2023-08-25 11:57] LABS: MANUAL DIFF FLAG NO
[2023-08-25 12:00] LABS: Basophils Percent Auto 0.4 % (0-2); Eosinophils Absolute Auto 0.1 X10*3/uL (0.0-0.4); Eosinophils Percent Auto 1.6 % (0-4); Hematocrit 40.2 % (37.0-47.0); Hemoglobin 13.4 g/dl (12.0-16.0); Imm Gran Abs Auto 0.02 X10*3/uL (0.00-0.03); Imm Gran Pct Auto 0.3 % (0.0-0.4); Lymphocytes Absolute Auto 1.7 X10*3/uL (1.2-4.9); Lymphocytes Percent Auto 25.4 % (20-40); Mean Corpuscular HGB Conc 33.3 g/dl (31.0-35.0); Mean Corpuscular Hemoglobin 30.7 pg (27.0-33.0); Mean Platelet Volume 9.9 fL (9.4-12.3); Monocytes Absolute Auto 0.5 X10*3/uL (0.1-1.2); Monocytes Percent Auto 7.3 % (2-11); Neutrophils Absolute Auto 4.4 x10*3/uL (2.0-8.3); Platelet Count 287 X10*3/uL (160-400); Red Blood Count 4.37 X10*6/uL (4.20-5.50); Red Cell Distribution Width 13.2 % (11.0-16.0); White Blood Count 6.7 X10*3/uL (4.8-10.8)
[2023-08-25 12:07] LABS: INTERNATIONAL NORM RATIO 1.1 (0.9-1.1); Prothrombin Time 13.1 SEC (11.1-13.3)
[2023-08-25 12:12] LABS: Appearance Urine Clear; Color Urine Yellow; Glucose Urine UA Negative (Negative); Leukocyte Esterase Urine Negative (Negative); Nitrite Urine Negative (Negative); PH 5.5 (5.0-9.0); Urine Blood Negative (Negative); Urine Ketones Negative (Negative); Urine Protein Negative (Neg-Trace)
[2023-08-25 12:17] LABS: Alanine Aminotransferase 18 U/L (0-31); Albumin Level 3.4 g/dL (3.5-5.0); Alkaline Phosphatase 87 U/L (39-117); Anion Gap 11 (12-20); Aspartate Amino Transferase 26 U/L (5-31); Bilirubin Direct 0.2 mg/dL (0.0-0.5); Bilirubin Total 0.5 mg/dL (0.0-1.0); Blood Urea Nitrogen 8 mg/dL (9-16); C Reactive Protein 4.58 mg/dL (< or = 0.50); Carbon Dioxide 26 mmol/L (22-29); Chloride 102 mmol/L (96-108); Creatinine Clr Calc Pharmacy 48.5; Estimated Glomerular Filt Rate > 60; Glucose Random 83 mg/dL (60-115); Lipase 46 U/L (8-78); Magnesium 2.1 mg/dL (1.6-2.6); Potassium 4.4 mmol/L (3.3-5.1); Sodium 135 mmol/L (135-145); Total Protein 7.7 g/dL (6.5-8.0)
[2023-08-25 12:21] LABS: B Type Natriuretic Peptide 19 pg/mL (<100)
[2023-08-25 12:22] LABS: COVID-19 Test Negative (Negative); IDNOW Serial# 16C4AD1C; IDNOW Serial# 55D5AD1C; Influenza A Negative (Negative); Influenza B2 Negative (Negative)
[2023-08-25 12:26] LABS: Troponin-I High Sensitivity < 2.7 ng/L (<3.5-17.0)
[2023-08-25 12:32] VITALS: BP 132/68; PULSE 76; RESP 12; O2SAT 94
[2023-08-25 12:42] LABS: D Dimer High Sensitivity 982 NG/ML
[2023-08-25] MEDS: iohexoL 350 MG/ML 100 ML INFUS..BTL IV (14:22)
[2023-08-25 15:49] VITALS: BP 136/67; PULSE 72; RESP 20; TEMP 36.9; O2SAT 96
[2023-08-25] MEDS: Albuterol Sulfate 90 MCG 8 GM INHALER 2 PUFF INHALE (16:21)
[2023-08-25 16:23] VITALS: PULSE 76; RESP 11; O2SAT 97
[2023-08-25 16:25] VITALS: BP 146/66; PULSE 73; RESP 17; TEMP 36.4; O2SAT 94
== END 2023-08-25 16:40 | disposition home or self-care (01) ==
PROVIDERS: Emergency Provider Emergency Medicine
DX: R06.02 Shortness of breath (principal); R53.1 Weakness; R05.9 Cough, unspecified; R94.31 Abnormal electrocardiogram [ECG] [EKG]; Z11.52 Encounter for screening for COVID-19; Z79.899 Other long term (current) drug therapy; Z20.828 Contact with and (suspected) exposure to other viral communicable diseases
CPT/HCPCS: 36415; 71046; 71275; 80048; 80076; 81003; 83690; 83735; 83880; 84484; 85025; 85379; 85610; 86140; 87502; 87635; 93005; 99284; 99285; Q9967

== ENCOUNTER → 2023-08-25 10:07 | Outpatient (BNV) | payer MEDICARE, SELFPAY | PROVIDERS: Emergency Provider Emergency Medicine; Visit Provider Internal Medicine Cardiovascular Disease | DX: I44.4 Left anterior fascicular block (principal); R94.31 Abnormal electrocardiogram [ECG] [EKG] | CPT/HCPCS: 93010 ==

== ENCOUNTER 2023-08-28 12:32 | Outpatient (AMB) | payer MEDICARE, SELFPAY ==
--- NOTE | 2023-08-28 12:47 | A.OFFVIS_ITS ---
Intake Vital Signs 08/28/23 12:53 Weight 120 lb BP 143/61 H Blood Pressure Location Rt brachial Position Sitting Pulse 74 Intake Visit Reasons: S/P lap jeny Intake Note: Patient here s/p lap jeny on 08-16-23. Reports incision healing well. No longer taking rx pain meds. Patient c/o: mild tenderness. Denies oozing, itch. Automotive Brake Adjuster Required: No Accompanied by: Daughter Allergies No Known Allergies Allergy (Verified 08/28/23 12:54) HPI HPI Comments History of Present Illness Details Patient presents with her daughter. She is slowly but steadily convalescing. She is advancing her diet. She is increasing her activity level. She has no wound issues or complaints. [facility] Medical History Hyperlipidemia Hypothyroidism Hypertension Type 2 diabetes mellitus Surgical History H/O hernia repair H/O: section Social History Household Members: Family Housing: House Patient Tobacco Use Status: Never used Tobacco Second Hand Smoke Exposure: No service: No Physical Exam Vital Signs: Last Vital Signs Pulse 74 08/28/23 12:53 BP 143/61 H 08/28/23 12:53 Eyes Other: Anicteric GI Other: Abdomen is soft. All wounds clean dry and intact healing well. Assessment & Plan Assessment & Plan (1) S/P laparoscopic cholecystectomy: Code(s): Z90.49 - Acquired absence of other specified parts of digestive tract Plan Patient and daughter have been given local instructions, and will follow-up p.r.n.. All questions answered. Coding Level of Care Code Global (55554) Diagnoses S/P laparoscopic cholecystectomy Z90.49
[2023-08-28 12:53] VITALS: BP 143/61; PULSE 74
== END 2023-08-28 13:05 | disposition home or self-care (01) ==
PROVIDERS: Visit Provider Surgery
DX: Z90.49 Acquired absence of other specified parts of digestive tract (principal)
CPT/HCPCS: 99024

== ENCOUNTER → 2023-08-28 12:32 | Outpatient (BNVA) | payer MEDICARE, SELFPAY | PROVIDERS: Visit Provider Surgery | DX: Z90.49 Acquired absence of other specified parts of digestive tract (principal) | CPT/HCPCS: 99212 ==